=== PATIENT | male | born 1960 | race Caucasian/White ===

== ENCOUNTER → 2017-07-07 09:42 | Outpatient (CLI) | payer BC, SELFPAY ==
[2017-07-07 11:59] LABS: Absolute Neutrophil Count 2.6 X10^3/uL (2.0-7.7); Basophil# 0.07 X10^3/uL; Basophil% 1.5 % (0-1); Eosinophil# 0.24 X10^3/uL; Eosinophils% 5.3 % (0-5); Hematocrit 44.9 % (40-54); Hemoglobin 15.5 g/dl (13.0-16.5); Lymphocyte % 26.5 % (19-41); Mean Corp Hgb Conc 34.5 g/gl (32-36); Mean Corpuscular Hgb 29.6 pg (27.0-32.0); Mean Corpuscular Volume 85.7 fL (80-94); Mean Platelet Vol. 11.3 fl (6.2-12.0); Monocyte# 0.46 X10^3/uL; Monocyte% 10.2 % (0-10); Neutrophil # 2.55 X10^3/uL (2.7-7.7); Neutrophil % 56.3 % (47-70); Platelet Count 170 K/mm3 (150-450); RBC Distribution Width CV 12.9 % (11.6-14.6); RBC Distribution Width SD 40.1 fl (35.1-43.9); Red Blood Count 5.24 M/mm3 (4.6-6.2); White Blood Count 4.5 K/mm3 (4.4-11.0)
[2017-07-07 12:06] LABS: POSITIVE COUNT NO; POSITIVE DIFFERENTIAL NO; POSITIVE MORPHOLOGY NO
[2017-07-07 12:11] LABS: Cholesterol 258 mg/dL (200); High Density Lipoprotein 49 mg/dL
== END ==
PROVIDERS: Family Provider Family Medicine; PCP Family Medicine; Visit Provider Family Medicine
DX: E78.00 Pure hypercholesterolemia, unspecified (principal)
CPT/HCPCS: 36415; 82465; 83718; 85025

== ENCOUNTER → 2017-09-07 08:23 | Outpatient (CLI) | payer BC, SELFPAY ==
--- NOTE | 2017-09-07 08:30 | US_ITS ---
STUDY: ABDOMINAL ULTRASOUND - RIGHT UPPER QUADRANT REASON FOR VISIT: Male, 57 years old. History of hepatic cyst. TECHNIQUE: Ultrasound evaluation of the right upper quadrant was performed with real-time and static roca-scale imaging. TECHNICAL QUALITY: Adequate. COMPARISON: None. FINDINGS: Liver: The liver measures 16.7 cm. There is increased echogenicity consistent with fatty infiltration. The bile ducts are within normal limits. There is hepatic color flow. The direction of portal flow is hepatopetal. There is a 0.8 cm x 1 cm x 0.8 cm cyst in the left lobe of the liver. There is also evidence of a 1.7 cm x 2.1 cm x 1.6 cm cyst in the right lobe. Gallbladder: Normal distended gallbladder. The gallbladder wall measures 2.8 mm. There is a negative sonographic Sims's sign. There is no pericholecystic fluid. There are no gallstones. Common Bile Duct (C.B.D.): The common bile duct measures 4.0 mm. Pancreas: Normal size of the head, body and tail of the pancreas. There is normal echogenicity of the pancreas. There is no demonstrated pancreatic mass or cyst. Right Kidney: Normal size of the right kidney. The right kidney measures 11.6 cm x 5 cm x 5.0 cm. Normal renal cortex. The right cortex measures 1.5 cm. There is no demonstrated renal mass or cyst. There is no right hydronephrosis. US/Liver IMPRESSION: 2 small hepatic cysts. Fatty infiltration of the liver. Electronically Signed: Hari Puga MD at 14:09 EDT Tel [phone], Service support ,
== END ==
PROVIDERS: Family Provider Family Medicine; PCP Family Medicine; Visit Provider Family Medicine
DX: K76.89 Other specified diseases of liver (principal)
CPT/HCPCS: 76705

== ENCOUNTER → 2017-10-26 07:11 | Outpatient (CLI) | payer BC, SELFPAY ==
[2017-10-26 10:51] LABS: AST(SGOT) 21 U/L (15-37); Alanine Aminotransfer ALT/SGPT 32 U/L (16-61); Albumin, Serum 4.1 g/dL (3.2-5.0); Alkaline Phosphatase 58 U/L (45-117); Bilirubin, Direct 0.11 mg/dL (0.00-0.30); Cholesterol 182 mg/dL (200); Globulin 2.8 g/dL (2.2-4.2); High Density Lipoprotein 39 mg/dL; Protein, Total 6.9 g/dL (6.4-8.2); Triglycerides 72 mg/dL; Very Low Density Lipoprotein 14 mg/dL (5-40)
== END ==
PROVIDERS: Family Provider Family Medicine; PCP Family Medicine; Visit Provider Family Medicine
DX: E78.00 Pure hypercholesterolemia, unspecified (principal)
CPT/HCPCS: 36415; 80061; 80076

== ENCOUNTER → 2018-05-03 06:39 | Outpatient (CLI) | payer BC, SELFPAY ==
[2018-04-19 09:46] VITALS: BMI 30.1
--- NOTE | 2018-05-03 06:42 | CT_ITS ---
STUDY: CT ABDOMEN AND PELVIS WITH CONTRAST REASON FOR EXAM: Male, 57 years old. Right-sided abdominal pain. Right groin pain. RADIATION DOSAGE (If Supplied By Facility): CTDIvol = ( 17.2 ) mGy, DLP = ( 1119.13 ) mGycm TECHNIQUE: Transaxial images were obtained from the dome of the diaphragm to the symphysis pubis with oral contrast. 100 ml of Isovue 300 contrast was administered. Sagittal and coronal images were reconstructed. Individualized dose optimization techniques were used for this CT. COMPARISON: None. FINDINGS: The visualized lung bases are unremarkable. The visualized portions of the heart are within normal limits. There are multiple well-circumscribed low-attenuation foci throughout the liver the largest measuring up to 1.8 cm within segment 4. Normal gallbladder and extrahepatic biliary system. Normal spleen. Normal pancreas. Normal bilateral adrenal glands. Normal right kidney. There is a too small to characterize low-attenuation focus arising from the left kidney that likely reflects underlying cyst. Normal visualized stomach. Normal small intestine. Normal colon. The appendix is visualized and appears normal. There are scattered peripheral calcifications of the abdominal aorta. Normal inferior vena cava. Normal retroperitoneum. Normal urinary bladder. Normal abdominal wall. There are right L4 and L5 pars defects. There is a grade 1 anterior spondylolisthesis of L4 on L5. CT/Abdomen/Pelvis WITH Contrast IMPRESSION: Right L4 and L5 pars defects. Grade 1 anterior spondylolisthesis of L4 on L5. Multiple low-attenuation foci throughout the liver that likely reflect underlying cysts and/or hemangiomas. Atherosclerosis. Electronically Signed: Naye Pan MD at 18:42 EST Tel , Service support ,
--- OUTSIDE RECORDS SUMMARY | 2018-06-14 19:41 | XMS RPT_ITS ---
:1960 Author Organization OHIP Support Name Relationship Address Phone SHANAE VAZQUEZ Unavailable [address] + [place] [address] WOOBR Unavailable [address] + [address] [place] [address] SHANAE VAZQUEZ Unavailable [address] + [place] [address] WOOBR Unavailable [address] + [address] [place] [address] SHANAE VAZQUEZ Unavailable [address] + [place] [address] WOOBR Unavailable [address] + [address] [place] [address] SHANAE VAZQUEZ Unavailable [address] + [place] [address] WOOBR Unavailable [address] + [address] [place] [address] SHANAE VAZQUEZ Unavailable [address] + [place] [address] WOOBR Unavailable [address] + [address] [place] [address] SHANAE VAZQUEZ Unavailable [address] + [place] [address] WOOBR Unavailable [address] + [address] [place] [address] SHANAE VAZQUEZ Unavailable [address] + [place] [address] WOOBR Unavailable [address] + [address] [place] [address] SHANAE VAZQUEZ Unavailable [address] + [place] [address] WOOBR Unavailable [address] + [address] [place] [address] LYIDA, SHANAE Unavailable [address] + [place] [address] WOOBR Unavailable [address] + [address] [place] [address] LYDIA, SHANAE Unavailable [address] + [place] [address] WOOBR Unavailable [address] + [address] [place] [address] LYDIA, SHANAE Unavailable [address] + [place] [address] WOOBR Unavailable [address] + [address] [place] [address] LYDIA, SHANAE Unavailable [address] + [place] [address] WOOBR Unavailable [address] + [address] [place] [address] Care Team Providers Name Role Phone Salvatore, Maat Primary Care Unavailable Kamron Hu Admitting Unavailable Kamron Hu Attending Unavailable Kamron Hu Admitting Unavailable Kamron Hu Attending Unavailable Chase, Mata Primary Care Unavailable KitKamron marion Consulting Unavailable Kamron Hu Admitting Unavailable Chase, Mata Primary Care Unavailable Kamron Hu Consulting Unavailable Kamron Hu Attending Unavailable Chase, Mata Attending Unavailable Chase, Mata Primary Care Unavailable Stephen Delgado Attending Unavailable Kamron Hu Referring Unavailable Salvatore, Mata Attending Unavailable Chase, Mata Primary Care Unavailable Chase, Mata Referring Unavailable Chase, Mata Attending Unavailable Chase, Mata Referring Unavailable Chase, Mata Primary Care Unavailable Pop Polanco Attending Unavailable Chase, Mata Referring Unavailable Pop Polanco Attending Unavailable Pop Polanco Referring Unavailable Chase, Mata Primary Care Unavailable Chase, Mata Attending Unavailable Chase, Mata Referring Unavailable Chase, Mata Primary Care Unavailable Pop Polanco Attending Unavailable Chase, Mata Referring Unavailable Chase, Mata Attending Unavailable Chase, Mata Primary Care Unavailable PROBLEMS PROBLEMS DATE TYPE CONDITION / CODE ATTENDING STATUS SOURCE 04/19/2018 Unknown R10.9 - Pop Polanco Active [place] [facility] abdominal [facility] / [facility] R10.9(ICD-10) Repository 04/19/2018 Unknown R10.30 - Lower Pop Polanco Active [place] abdominal pain, Community unspecified / Hospital R10.30(ICD-10) Repository 08/04/2017 Unknown R07.9 - Chest Danny, Stephen Active [place] pain, unspecified Community / R07.9(ICD-10) Hospital Repository PROCEDURES PROCEDURES No Procedure Records FoundRESULTS RESULTS SURGERY VISIT REPORT Observed: 05/10/2018 Status: F Source: [place] 7:59 AM [facility] REPOSITORY [facility] [address] [place] [address] OFFICE VISIT Date of Service: 05/09/18 MR#: [id number] Acct: [id number] Name: BONIFACIO VAZQUEZ Rep #: [id number] : 1960 Provider: Pop Polanco MD Age/Sex: 57/M Location: [facility] Status: Signed Intake Intake Visit Reasons: f/u CT scan Chief Complaint: CT results Hardness Inspector Required: No Is patient in pain?: No Allergies bromfenac [From Duract] Allergy (Verified 05/09/18 08:59) Unknown Medications fluticasone 50 mcg/actuation nasal spray,suspension 2 spray INTRANASAL DAILY 04/19/18 [History Confirmed 04/19/18] loratadine 10 mg tablet 10 mg PO DAILY 04/19/18 [History Confirmed 04/19/18] PFSH Medical History Abdominal pain (Acute) Sleep apnea (Acute) Surgical History No history of previous surgery (Acute) Family History Mother Heart disease High cholesterol Brother Cancer skin Social History Smoking Status: Never smoker alcohol intake: never substance use type: does not use HPI HPI HPI: BONIFACIO VAZQUEZ, is a 57 M who presents to the office today for follow-up from a CAT scan which was completed at [facility] on 05/03/2018. This was done secondary to the patient having some right-sided abdominal pain and right groin pain. Pertinent findings were a L4 and 5 pars defect a grade 1 anterior spondylolisthesis of L4 on 5. There were multiple low-attenuation foci in the liver that most likely reflected underlying cysts or hemangiomas. And there was atherosclerosis. When I reviewed the scan there does appear to be some slight weakness particularly in the right groin but no obvious signs of hernia. In addition I question whether or not that there is some loss of space in the joints particularly on the right hip area. Patient states that he still is occasionally having the discomfort in the right groin sometimes up higher. Exam GI Other: There is some slight weakness in the right groin there is no doubt about that. However there is no signs of any obvious hernias here. The discomfort that he is primarily experiencing is in the groin area itself and there is no signs of a femoral hernia and there is no palpable lymphadenopathy. Assessment AND Plan Problems 1. Right groin pain R10.31 2. Right lower quadrant abdominal pain R10.31 Plan At this point I do not believe the patient needs to have a hernia operation. I believe that his pain is most likely related either to specifically a groin pull or other musculoskeletal issue. In addition I cannot discount the fact that there are issues within the lower back area and I question whether or not there is some issues within the right hip area. I think that is best for him to get back to his primary care physician to see if further x-rays of both the lower back and the hip area are warranted and/or if a consultation with orthopedics might benefit him. I have also instructed him that if at any time he feels an obvious bulge or mass in the right inguinal area to come back to me at once so that I can reevaluate him for an inguinal hernia. Finally we discussed the fact that he will need another colonoscopy sometime in 2019. He has been given the open access number and I believe that he would be a good candidate for me to do open access colonoscopy on him on the 10-year anniversary of his last colonoscopy. His last colonoscopy was 02/28/2009. Coding Level of Care Code Off vis,est,level 2 Diagnoses Right groin pain R10.31 Right lower quadrant abdominal pain R10.31 05/10/18 0759 <Electronically signed by Pop Polanco MD> Date Pop Cat Signature: Date (if applicable) CC: Mata Chase MD CBC W/DIFF, AUTOMATED Collected: 05/09/2018 Status: F Source: [place] 9:36 AM [facility] REPOSITORY TYPE CODE TESTS RESULT OUT OF RANGE REFERENCE UNITS LAB L100.1000 4.4-11.0 K/mm3 Normal WBC 4.5 LAB L100.1200 4.6-6.2 M/mm3 Normal RBC 4.89 LAB L100.1300 13.0-16.5 g/dl Normal HGB 14.5 LAB L100.1400 40-54 % Normal HCT 42.9 LAB L100.1500 80-94 fL Normal MCV 87.7 LAB L100.1600 27.0-32.0 pg Normal MCH 29.7 LAB L100.1700 32-36 g/gl Normal MCHC 33.8 LAB L100.1810 11.6-14.6 % Normal RDW CV 13.1 LAB L100.1820 35.1-43.9 fl Normal RDW SD 42.1 LAB L100.1900 150-450 K/mm3 Normal PLT 166 LAB L100.2000 6.2-12.0 fl Normal MPV 10.6 LAB L100.2100 47-70 % Normal NEUT% 55.2 LAB L100.2200 19-41 % Normal LY% 30.8 LAB L100.2300 0-10 % Normal MONO% 8.0 LAB L100.2400 0-5 % Normal EO% 4.0 LAB L100.2500 0-1 % High BASO% 1.8 LAB L100.2550 0.0-0.9 % Normal IM GRAN % 0.200 Result Comment: IG% - Immature Granulocytes (promyelocytes, myelocytes and metamyelocytes) > 1% indicates that a LEFT SHIFT is Present. LAB L100.2620 2.0-7.7 X10 3/uL Normal Absolute Neut 2.5 LAB L100.2720 0.83-4.51 X10 3/ul Normal Absolute Lymph 1.38 Performed By: #### L100.0100, L500.4050, L500.4100 #### [facility] [address] [place], [address] COMPREHENSIVE METABOLIC Collected: 05/09/2018 Status: F Source: [place] [facility] 9:36 AM [facility] REPOSITORY TYPE CODE TESTS RESULT OUT OF RANGE REFERENCE UNITS LAB L501.0100 74-106 mg/dL Normal GLU 97 Result Comment: Please note revised GLUCOSE reference range effective 2017. LAB L501.1000 7-18 mg/dL Normal BUN 17 LAB L501.1100 0.70-1.30 mg/dL Normal CREAT,SERUM 0.99 Result Comment: The validity of the calculated GFR AND GFRAA in patients over 70 years has not been determined. Clinical correlation is essential. LAB L501.1110 >60 mL/min Normal EST GFR 82 Result Comment: Non- GFR Calc LAB L501.1115 >60 mL/min Normal EST GFR - AA 100 Result Comment: GFR Calc LAB L501.1300 10-20 RATIO Normal BUN/CRE 17.1 LAB L501.1500 6.4-8.2 g/dL T Normal PROT 7.4 LAB L501.1800 3.2-5.0 g/dL Normal ALB 4.0 LAB L501.1950 2.2-4.2 g/dL Normal GLOB 3.4 LAB L501.2000 0.9-2.4 RATIO Normal A/G 1.2 LAB L501.2200 8.5-10.1 mg/dL CA Normal 8.6 LAB L501.4100 15-37 U/L Normal AST 18 LAB L501.4305 45-117 U/L Normal ALK P 64 LAB L501.4405 16-61 U/L Normal ALT 33 LAB L501.4600 0.20-1.00 mg/dL T Normal BILI 0.50 LAB L501.5300 136-145 mmol/L NA Normal 144 LAB L501.5600 3.5-5.1 mmol/L K Normal 4.2 LAB L501.5900 98-107 mmol/L High CL 109 LAB L501.6100 21.0-32.0 mmol/L Normal CO2 28.0 LAB L501.6200 5-15 Normal GAP 7 Performed By: #### L100.0100, L500.4050, L500.4100 #### [facility] [address] [place], [address] LIPID PROFILE Collected: 05/09/2018 Status: F Source: [place] 9:36 AM [facility] REPOSITORY TYPE CODE TESTS RESULT OUT OF RANGE REFERENCE UNITS LAB L501.4900 200 mg/dL High CHOL 229 Result Comment: <200 mg/dL Desirable 200-240 mg/dL Borderline >240 mg/dL High Risk LAB L501.5000 mg/dL Normal TRIG 93 Result Comment: The drugs N-Acetylcysteine and Metamizole may falsely depress this assay. Serum Triglycerides Reference Interval Normal <150 mg/dL Borderline high 150 - 199 mg/dL High 200 - 499 mg/dL Very High > or = 500 mg/dL LAB L501.6400 mg/dL Normal HDL 48 Result Comment: The drugs N-Acetylcysteine and Metamizole may falsely depress this assay. Reference Range HDL <40 mg/dL Low HDL Cholesterol HDL >or= 60 mg/dL High HDL Cholesterol LAB L501.6500 0-130 mg/dL High LDL 162 LAB L501.6600 5-40 mg/dL Normal VLDL 19 Performed By: #### L100.0100, L500.4050, L500.4100 #### [facility] [address] [facility] [place], [address] ABDOMEN/PELVIS WITH Observed: 05/03/2018 Status: F Source: [place] CONTRAST 6:42 AM [facility] REPOSITORY [facility] Imaging Services [address] [address] Abdomen/Pelvis WITH Contrast MR#: [id number] Acct: [id number] Name: BONIFACIO VAZQUEZ Reece Rep #: [id number] : 1960 M 57 From: Naye Pan MD PCP: Mata Chase MD Status: REG CLI Study: Abdomen/Pelvis WITH Contrast Date of Exam: 05/03/18 Exam# [id number] Ordering Dr: Pop Polanco MD STUDY: CT ABDOMEN AND PELVIS WITH CONTRAST REASON FOR EXAM: Male, 57 years old. Right-sided abdominal pain. Right groin pain. RADIATION DOSAGE (If Supplied By Facility): CTDIvol = ( 17.2 ) mGy, DLP = ( 1119.13 ) mGycm TECHNIQUE: Transaxial images were obtained from the dome of the diaphragm to the symphysis pubis with oral contrast. 100 ml of Isovue 300 contrast was administered. Sagittal and coronal images were reconstructed. Individualized dose optimization techniques were used for this CT. COMPARISON: None. FINDINGS: The visualized lung bases are unremarkable. The visualized portions of the heart are within normal limits. There are multiple well-circumscribed low-attenuation foci throughout the liver the largest measuring up to 1.8 cm within segment 4. Normal gallbladder and extrahepatic biliary system. Normal spleen. Normal pancreas. Normal bilateral adrenal glands. Normal right kidney. There is a too small to characterize low-attenuation focus arising from the left kidney that likely reflects underlying cyst. Normal visualized stomach. Normal small intestine. Normal colon. The appendix is visualized and appears normal. There are scattered peripheral calcifications of the abdominal aorta. Normal inferior vena cava. Normal retroperitoneum. Normal urinary bladder. Normal abdominal wall. There are right L4 and L5 pars defects. There is a grade 1 anterior spondylolisthesis of L4 on L5. CT/Abdomen/Pelvis WITH Contrast IMPRESSION: Right L4 and L5 pars defects. Grade 1 anterior spondylolisthesis of L4 on L5. Multiple low-attenuation foci throughout the liver that likely reflect underlying cysts and/or hemangiomas. Atherosclerosis. Electronically Signed: Naye Pan MD at 18:42 EST Tel , Service support , CC: Pop Polanco MD; Mata Chase MD Parts Sales Manager: Signed SURGERY VISIT REPORT Observed: 04/21/2018 Status: F Source: [place] 11:12 AM [facility] [address] [place] [address] OFFICE VISIT Date of Service: 04/19/18 MR#: [id number] Acct: [id number] Name: BONIFACIO VAZQUEZ Rep #: [id number] : 1960 Provider: Pop Polanco MD Age/Sex: 57/M Location: [facility] Status: Signed Intake Vital Signs04/19/18 Height 5 ft 10 in 04/19/18 Weight: 210 lb Intake Visit Reasons: RLQ Pain Poss Hernia Chief Complaint: chest pain Hardness Inspector Required: No Is patient in pain?: No Allergies bromfenac [From Duract] Allergy (Verified 04/19/18 09:47) Unknown Medications fluticasone 50 mcg/actuation nasal spray,suspension 2 spray INTRANASAL DAILY 04/19/18 [History Confirmed 04/19/18] loratadine 10 mg tablet 10 mg PO DAILY 04/19/18 [History Confirmed 04/19/18] PFSH Medical History Abdominal pain (Acute) Sleep apnea (Acute) Surgical History No history of previous surgery (Acute) Family History Mother Heart disease High cholesterol Brother Cancer skin Social History Smoking Status: Never smoker alcohol intake: never substance use type: does not use HPI HPI HPI: BONIFACIO VAZQUEZ, is a 57 M who presents to the office today for right groin pain. Patient is having right lower quadrant and right groin pain been going on for a month hurts worse after he has been running he has not noticed any obvious bulges. He has not had any nausea or vomiting. He has has noticed some fullness in the air and some swelling. Patient will be due for a screening low risk colonoscopy this year ROS General General: No weight change, appetite, fatigue, colon cancer, breast cancer or weakness HEENT HEENT: No difficulty swallowing, eye injury, eye surgery, swollen glands or hoarseness Endo Endocrine: No thyroid disease, diabetes mellitus, thyroid cancer, Hair loss, heat intolerance or cold intolerance Skin Skin: No rash or changing moles Breast Breast: No left breast lump, right breast lump, nipple discharge, breast pain, abnormal mammogram, abnormal US or breast enlargement Musc Musculoskeletal: No back problems, arthritis, rheumatoid arthritis, gout or joint pain Cardio Cardiovascular: Yes murmur; no pacemaker, heart disease, atrial fibrillation, high blood pressure, heart attack, heart stent, palpitations, shortness of breat with exertion or chest pain Psych Psychiatric: No depression, anxiety or hearing voices Resp Respiratory: No shortness of breath, Yes sleep apnea, No cough, No COPD, No asthma, No emphysema, No wheezing Gastro Gastrointestinal: Yes abdominal pain, No nausea or vomiting, No diarrhea, No constipation, No blood in stool, No acid reflux, No hemorrhoids, Yes ulcers, No gallbladder problem, No black,tarry stools Bowen Hematologic: No blood thinners, No blood disorders, No bleeding, No anemia, No blood clots Neuro Neurologic: No system reviewed and no additional complaints, except as docu, No as per HPI, No abnormal walking, No abnormal hearing, No abnormal movements, No abnormal speech, No behavioral changes, No burning sensations, No confusion, No seizure-like activity, No unsteadiness, No dizziness, No localized weakness, No frequent falls, No headache(s), No lack of coordination, No loss of vision, No memory loss, No numbness, No other visual disturbances, No radiating pain, No restless legs, No sensory deficit, No fainting, No tingling, No tremor(s), No weakness, No other Exam Chest Breast Palpation: No nipple discharge Cardio Heart Sounds: murmur GI Other: Patient's abdomen is soft. I really cannot feel any obvious large hernias in the groin area he does have some tenderness above the groin area near where the McBurney's point is slightly inferior to that where the internal opening might be as well. He has no sign of a varicocele. There is no rebound guarding or peritoneal signs identified. Assessment AND Plan Problems 1. Right lower quadrant abdominal pain R10.31 2. Right groin pain R10.31 Plan I am going to obtain a CAT scan of the abdomen and pelvis to assess whether him dealing with some form of intra-abdominal process versus a potential hernia. I will see him back once this is completed. Orders Orders: Medications New: Coding Level of Care Code Off vis,new,level 3 Diagnoses Right lower quadrant abdominal pain R10.31 Right groin pain R10.31 04/21/18 1112 <Electronically signed by Pop Polanco MD> Date Pop Polanco MD Cosigner Signature: Date (if applicable) CC: Mata Chase MD LIVER PROFILE Collected: 10/26/2017 Status: F Source: [place] 7:15 AM [facility] REPOSITORY Order Comment: Order Date: 09/08/17 Order Info: [id number] - LIVER Order Info: [id number] - LIPID TYPE CODE TESTS RESULT OUT OF RANGE REFERENCE UNITS LAB L501.1500 6.4-8.2 g/dL Normal T PROT 6.9 LAB L501.1800 3.2-5.0 g/dL Normal ALB 4.1 LAB L501.1950 2.2-4.2 g/dL Normal GLOB 2.8 LAB L501.4100 15-37 U/L Normal AST 21 LAB L501.4305 45-117 U/L Normal ALK P 58 LAB L501.4405 16-61 U/L Normal ALT 32 LAB L501.4600 0.20-1.00 mg/dL Normal T BILI 0.40 LAB L501.4700 0.00-0.30 mg/dL Normal D BILI 0.11 Performed By: #### L500.3400, L500.4100 #### [facility] [address] [place], [address] LIPID PROFILE Collected: 10/26/2017 Status: F Source: [place] 7:15 [facility] REPOSITORY Order Comment: Order Date: 09/08/17 Order Info: [id number] - LIVER Order Info: [id number] - LIPID TYPE CODE TESTS RESULT OUT OF RANGE REFERENCE UNITS LAB L501.4900 200 mg/dL Normal CHOL 182 Result Comment: <200 mg/dL Desirable 200-240 mg/dL Borderline >240 mg/dL High Risk LAB L501.5000 mg/dL Normal TRIG 72 Result Comment: The drugs N-Acetylcysteine and Metamizole may falsely depress this assay. Serum Triglycerides Reference Interval Normal <150 mg/dL Borderline high 150 - 199 mg/dL High 200 - 499 mg/dL Very High > or = 500 mg/dL LAB L501.6400 mg/dL Low HDL 39 Result Comment: The drugs N-Acetylcysteine and Metamizole may falsely depress this assay. Reference Range HDL <40 mg/dL Low HDL Cholesterol HDL >or= 60 mg/dL High HDL Cholesterol LAB L501.6500 0-130 mg/dL Normal LDL 129 LAB L501.6600 5-40 mg/dL Normal VLDL 14 Performed By: #### L500.3400, L500.4100 #### [facility] [address] [facility] [place], [address] LIVER Observed: 09/07/2017 Status: F Source: [place] 8:30 AM [facility] REPOSITORY [facility] Imaging Services [address] [place] [address] Liver MR#: [id number] Acct: [id number] Name: BONIFACIO VAZQUEZ Rep #: [id number] : 1960 M 57 From: Hari Puga MD PCP: Mata Chase MD Status: REG CLI Study: Liver Date of Exam: 09/07/17 Exam# [id number] Ordering Dr: Mata Chase MD STUDY: ABDOMINAL ULTRASOUND - RIGHT UPPER QUADRANT REASON FOR VISIT: Male, 57 years old. History of hepatic cyst. TECHNIQUE: Ultrasound evaluation of the right upper quadrant was performed with real-time and static roca-scale imaging. TECHNICAL QUALITY: Adequate. COMPARISON: None. FINDINGS: Liver: The liver measures 16.7 cm. There is increased echogenicity consistent with fatty infiltration. The bile ducts are within normal limits. There is hepatic color flow. The direction of portal flow is hepatopetal. There is a 0.8 cm x 1 cm x 0.8 cm cyst in the left lobe of the liver. There is also evidence of a 1.7 cm x 2.1 cm x 1.6 cm cyst in the right lobe. Gallbladder: Normal distended gallbladder. The gallbladder wall measures 2.8 mm. There is a negative sonographic Sims's sign. There is no pericholecystic fluid. There are no gallstones. Common Bile Duct (C.B.D.): The common bile duct measures 4.0 mm. Pancreas: Normal size of the head, body and tail of the pancreas. There is normal echogenicity of the pancreas. There is no demonstrated pancreatic mass or cyst. Right Kidney: Normal size of the right kidney. The right kidney measures 11.6 cm x 5 cm x 5.0 cm. Normal renal cortex. The right cortex measures 1.5 cm. There is no demonstrated renal mass or cyst. There is no right hydronephrosis. US/Liver IMPRESSION: 2 small hepatic cysts. Fatty infiltration of the liver. Electronically Signed: Hari Puga MD at 14:09 EDT Tel [phone], Service support , CC: Mata Chase MD Parts Sales Manager: Signed CBC W/DIFF, AUTOMATED Collected: 07/07/2017 Status: F Source: [place] 9:44 AM [facility] REPOSITORY TYPE CODE TESTS RESULT OUT OF RANGE REFERENCE UNITS LAB L100.1000 4.4-11.0 K/mm3 Normal WBC 4.5 LAB L100.1200 4.6-6.2 M/mm3 Normal RBC 5.24 LAB L100.1300 13.0-16.5 g/dl Normal HGB 15.5 LAB L100.1400 40-54 % Normal HCT 44.9 LAB L100.1500 80-94 fL Normal MCV 85.7 LAB L100.1600 27.0-32.0 pg Normal MCH 29.6 LAB L100.1700 32-36 g/gl Normal MCHC 34.5 LAB L100.1810 11.6-14.6 % Normal RDW CV 12.9 LAB L100.1820 35.1-43.9 fl Normal RDW SD 40.1 LAB L100.1900 150-450 K/mm3 Normal PLT 170 LAB L100.2000 6.2-12.0 fl Normal MPV 11.3 LAB L100.2100 47-70 % Normal NEUT% 56.3 LAB L100.2200 19-41 % Normal LY% 26.5 LAB L100.2300 0-10 % High MONO% 10.2 LAB L100.2400 0-5 % High EO% 5.3 LAB L100.2500 0-1 % High BASO% 1.5 LAB L100.2550 0.0-0.9 % Normal IM GRAN % 0.200 Result Comment: IG% - Immature Granulocytes (promyelocytes, myelocytes and metamyelocytes) > 1% indicates that a LEFT SHIFT is Present. LAB L100.2620 2.0-7.7 X10 3/uL Normal Absolute Neut 2.6 LAB L100.2720 0.83-4.51 X10 3/ul Normal Absolute Lymph 1.20 Performed By: #### L100.0100 #### [facility] [address] [id number] CHOLESTEROL Collected: 07/07/2017 Status: F Source: [place] 9:44 AM [facility] REPOSITORY TYPE CODE TESTS RESULT OUT OF RANGE REFERENCE UNITS LAB L501.4900 200 mg/dL High CHOL 258 Result Comment: <200 mg/dL Desirable 200-240 mg/dL Borderline >240 mg/dL High Risk Performed By: #### L501.4900, L501.6400 #### [facility] [address] [facility] [address] HIGH DENSITY Collected: 07/07/2017 Status: F Source: [place] LIPOPROTEIN 9:44 AM [facility] REPOSITORY TYPE CODE TESTS RESULT OUT OF RANGE REFERENCE UNITS LAB L501.6400 mg/dL Normal HDL 49 Result Comment: The drugs N-Acetylcysteine and Metamizole may falsely depress this assay. Reference Range HDL <40 mg/dL Low HDL Cholesterol HDL >or= 60 mg/dL High HDL Cholesterol Performed By: #### L501.4900, L501.6400 #### [facility] [address] [facility] [address] 12 LEAD ELECTROCARDIOGRAM Observed: 06/30/2017 Status: F Source: [place] 11:17 AM [facility] REPOSITORY [facility] Cardiovascular Services [address] [place] [address] 12 Lead EKG 06/25/17 0528 MR#: [id number] Acct: [id number] Name: BONIFACIO VAZQUEZ Rep #: [id number] : 1960 56 From: Jovany Frances MD Attending Dr: Kamron Hu MD Status: DIS SOHAM Ordering Dr: Kamron Hu MD Date: 06/25/17 Location: U Sex: M C Admitted: 06/24/17 Test Reason : AM EKG Blood Pressure : / mmHG Vent. Rate : 056 BPM Atrial Rate : 056 BPM P-R Int : 196 ms QRS Dur : 114 ms QT Int : 440 ms P-R-T Axes : 007 062 044 degrees QTc Int : 424 ms Sinus bradycardia Confirmed by YVROSE GARCIA, JOVANY ([id number]), newspaper photo editor STANISLAV GAMBOA ([id number]) on 06/30/2017 11:17:02 AM Referred By: DR HU Confirmed By:JOVANY FRANCES MD 06/30/17 111 Date Jovany Frances MD CC: Mata Chase MD Signed 12 LEAD ELECTROCARDIOGRAM Observed: 06/28/2017 Status: F Source: DEVYN 2:56 PM [facility] REPOSITORY [facility] Cardiovascular Services [address] [place] [address] 12 Lead EKG 06/24/17 0641 MR#: [id number] Acct: [id number] Name: BONIFACIO VAZQUEZ Rep #: [id number] : 1960 56 From: Jovany Frances MD Attending Dr: Kamron Hu MD Status: DIS SOHAM Ordering Dr: Eder Verde MD Date: 06/24/17 Location: U Sex: M C Admitted: 06/24/17 Test Reason : CP Blood Pressure : / mmHG Vent. Rate : 077 BPM Atrial Rate : 077 BPM P-R Int : 194 ms QRS Dur : 112 ms QT Int : 408 ms P-R-T Axes : 047 029 041 degrees QTc Int : 461 ms Normal sinus rhythm Poor R wave progression Confirmed by JOVANY FRANCES MD ([id number]), newspaper photo editor STANISLAV GAMBOA ([id number]) on 06/28/2017 2:56:15 PM Referred By: WENDY Confirmed By:JOVANY FRANCES MD 06/28/17 1456 Date Jovany Frances MD CC: Mata Chase MD Signed STRESS REPORT Observed: 06/25/2017 Status: F Source: ELSAH 4:28 PM [facility] REPOSITORY [facility] Cardiovascular Services [address] [place] [address] MR#: [id number] Acct: [id number] Name: BONIFACIO VAZQUEZ Rep #: [id number] : 1960 56 From: Jovany Frances MD Primary Care: Mata Chase MD Status: DIS SOHAM Ordering Dr: Isaac: Tyrone Kapoor Stress Test Report Date: 06/25/2017 Procedure: Exercise tolerance test/nuclear imaging study Indications: Chest pain Consent: Per the patient Procedure: The patient exercised on a Jefferson protocol for 10 minutes completing stage III and 1 minute of stage IV achieving a peak heart rate of 153 bpm (93% predicted maximal heart rate) with a peak blood pressure 212/78 mmHg and a peak MET capacity of 11 MET's. The baseline ECG demonstrated sinus bradycardia. The peak exercise ECG demonstrated no obvious ECG changes. There was a rare PVC during exercise. The blood pressure response demonstrated resting hypertension with an exaggerated response. The functional capacity was considered good. There was no complaint of chest discomfort during exercise or recovery. The examination was discontinued secondary to dyspnea and leg discomfort. Impression: 1. Technically adequate (percent predicted maximal heart rate greater than 85%) exercise tolerance test 2. Peak exercise ECG with no obvious ECG changes 3. Rare PVC during exercise 4. Nuclear images pending Myocardial perfusion imaging study: Technique: The patient was injected with 14.5 mCi of technetium 99m Cardiolite and subsequently rest SPECT Cardiolite nuclear imaging was obtained in the horizontal long, vertical long, and short axis views. The patient exercised on a Jefferson protocol for 10 minutes completing stage III and 1 minute of stage IV achieving a peak heart rate of 153 bpm (93% predicted maximal heart rate) with a peak blood pressure 212/78 mmHg and a peak MET capacity of 11 MET's. The patient was injected with 44.8 mCi of technetium 99m Cardiolite and subsequently stress SPECT Cardiolite nuclear imaging was obtained in the horizontal long, vertical long, and short axis views. A gated Cardiolite study at peak stress was obtained. Interpretation: Rest and stress SPECT cardiac nuclear imaging status post realignment, normalization, and attenuation correction, demonstrates the appearance of relative uniform tracer uptake and myocardial perfusion appearing within normal limits. There is end systolic thickening and brightening. The gated Cardiolite study demonstrates myocardial thickening and inward wall motion. The reported LVEF is 63%. Impression: 1. Rest and stress SPECT Cardiolite nuclear imaging demonstrate relative uniform tracer uptake and myocardial perfusion appearing within normal limits. 2. The gated Cardiolite study reports an LVEF of 63%. This note was generated with Grasshoppers!ation software. Every effort was made to ensure accuracy, however, computerized straddle bug mistakes may persist. 06/25/17 1628 <Electronically signed by Jovany Frances MD> Date Jovany Frances MD CC: Mata Chase MD Date Dictated: 06/25/171610 Date Transcribed: 06/25/171610 Parts Sales Manager: PM Signed DISCHARGE SUMMARY Observed: 06/25/2017 Status: F Source: DEVYN 1:11 PM [facility] REPOSITORY [facility] Medical Records Department [address] [place] [address] Discharge Summary 06/25/17 1259 MR#: [id number] Acct: [id number] Name: BONIFACIO VAZQUEZ Rep #: [id number] : 1960 56 From: Raya SANTOS PCP: Mata Chase MD Status: ADM SOHAM Y Location: [place] [address] <Raya Murillo - Last Filed: 06/25/17 13:03> Discharge Date and Diagnosis Date of Admission: 06/24/17 Date of Discharge: 06/25/17 - Primary Discharge Diagnosis Active and Suspected Problems Acute chest pain- ACS ruled out - Secondary Discharge Diagnosis Chronic Problems Dyslipidemia (Chronic) History of peptic ulcer (Chronic) BMI 32.0-32.9,adult (Chronic) Hospital Course and Treatment Imaging Results: Diagnostic Data Chest X-Ray 06/24/17 06:40 IMPRESSION: Normal x-ray examination of the chest. Electronically Signed: Diego Orr MD, FACR at 7:11 EST , Service support , Operations: None Procedures: Stress test Summary of Care Provided: The patient is a 56 year old M admitted 06/24/2017 due to chest pain which has been ongoing intermittently for approximately a week and a half. Not associated with exertion. He has a past medical history of hyperlipidemia, history of peptic ulcer, obesity. ACS ruled out. Troponin negative 4. Patient underwent stress test which was negative for ischemia. Echocardiogram shows an estimated ejection fraction of 65%, stage I diastolic dysfunction, left atrium mildly enlarged, mild pulmonic valve insufficiency. Patient denies further chest/shoulder pain. Patient seen and examined prior to discharge. Denies palpitations, dizziness, lightheadedness. Denies shortness of breath. He is stable for discharge home. Heart rate regular in rate and rhythm, no murmurs. Lungs clear. Abdomen soft, nontender. Neuro grossly intact. Vitals stable. Patient will follow up with primary care physician in 1-2 weeks. Other chronic medical conditions as noted above are stable at this time. This patient was seen by DANIELLE Landa under the supervision of Dr. Hu. Discharge Diet: Low fat/ Low Cholesterol Discharge Activity: Return to Normal Activity Call your doctor if you observe: Fever of 101 or Higher, Shortness of breath, Dizziness, Fainting spells, Chest pain, Increased palpitations (irregular heartbeat) Home Medications: Medications to take at Discharge Pantoprazole Sodium [Protonix] 40 mg PO DAILY PRN PRN 06/24/17 Primary Care Physician: Mata Chase MD [Primary Care Provider] - Please follow up with your Primary Care Physician in: 1-2 Weeks Disposition: Home Minutes spent on discharge:: 35 Patient Condition:: Stable Meaningful Use Info Meaningful Use Diagnoses (Choose all that apply): None applicable <Kamron Hu - Last Filed: 06/25/17 13:10> Discharge Date and Diagnosis - Secondary Discharge Diagnosis Chronic Problems Dyslipidemia (Chronic) History of peptic ulcer (Chronic) BMI 32.0-32.9,adult (Chronic) Hospital Course and Treatment Summary of Care Provided: Patient is a 56-year-old male admitted with chest pain. He was placed in a monitored bed did rule out AZ with serial cardiac enzymes. Patient subsequently underwent a nuclear stress test which was negative for stress-induced ischemia. Also had an echo done which demonstrated ejection fraction of 65%. Hospital course as elicited above by Raya Murillo Total time spent on discharge process 35 minutes Code Visit OBSV E AND M: [id number] Observation care discharge 06/25/17 1304 <Electronically signed by Raya Murillo NP-C> Date Raya Murillo DIRECTOR SURFACE TRANSPORTATION-C 06/25/17 1311<Electronically signed by Kamron Hu MD> Cosigner Signature (if applicable): Date Kamron Hu MD CC: DIRECTOR SURFACE TRANSPORTATION-C Raya Murillo; Kamron Hu MD; Mata Chase MD Signed DISCHARGE INSTRUCTION Observed: 06/25/2017 Status: F Source: DEVYN 12:58 PM [facility] REPOSITORY [facility] Medical Records Department [address] [facility] [address] [place] [address] Instructions for Home/Discharge Instructions 06/25/17 1257 MR#: [id number] Acct: [id number] Name: BONIFACIO VAZQUEZ Rep #: [id number] : 1960 56 From: Raya SANTOS PCP: Mata Chase MD Status: ADM SOHAM - Discharge Diagnoses Current Active Problems: Current Active and Chronic Problems Acute chest pain (Acute) Dyslipidemia (Chronic) History of peptic ulcer (Chronic) BMI 32.0-32.9,adult (Chronic) You will use the following diet at home:: Cardiac - Low-cholesterol Discharge Activity: Return to Normal Activity Call your doctor if you observe: Fever of 101 or Higher, Shortness of breath, Dizziness, Fainting spells, Chest pain, Increased palpitations (irregular heartbeat) Allergies/Adverse Reactions: Allergies bromfenac [From Duract] Allergy (Verified 06/24/17 06:43) Unknown CRAMPING, DIARRHEA Medications to take at Discharge Pantoprazole Sodium [Protonix] 40 mg PO DAILY PRN PRN 06/24/17 Primary Care Physician: Mata Chase MD [Primary Care Provider] - Please follow up with your Primary Care Physician in: 1-2 Weeks Proposed Discharge Date: 06/25/17 06/25/17 1258 <Electronically signed by Raya Murillo NP-C> Date Raya Murillo NP-C CC: Mata Chase MD CBC W/DIFF, AUTOMATED Collected: 06/25/2017 Status: F Source: DEVYN 5:15 AM [facility] REPOSITORY TYPE CODE TESTS RESULT OUT OF RANGE REFERENCE UNITS LAB L100.1000 4.4-11.0 K/mm3 Normal WBC 4.6 LAB L100.1200 4.6-6.2 M/mm3 Normal RBC 4.99 LAB L100.1300 13.0-16.5 g/dl Normal HGB 15.0 LAB L100.1400 40-54 % Normal HCT 43.1 LAB L100.1500 80-94 fL Normal MCV 86.4 LAB L100.1600 27.0-32.0 pg Normal MCH 30.1 LAB L100.1700 32-36 g/gl Normal MCHC 34.8 LAB L100.1810 11.6-14.6 % Normal RDW CV 12.8 LAB L100.1820 35.1-43.9 fl Normal RDW SD 39.8 LAB L100.1900 150-450 K/mm3 Normal PLT 165 LAB L100.2000 6.2-12.0 fl Normal MPV 10.8 LAB L100.2100 47-70 % Normal NEUT% 47.3 LAB L100.2200 19-41 % Normal LY% 34.2 LAB L100.2300 0-10 % High MONO% 12.2 LAB L100.2400 0-5 % High EO% 5.2 LAB L100.2500 0-1 % Normal BASO% 0.9 LAB L100.2550 0.0-0.9 % Normal IM GRAN % 0.200 Result Comment: IG% - Immature Granulocytes (promyelocytes, myelocytes and metamyelocytes) > 1% indicates that a LEFT SHIFT is Present. LAB L100.2620 2.0-7.7 X10 3/uL Normal Absolute Neut 2.2 LAB L100.2720 0.83-4.51 X10 3/ul Normal Absolute Lymph 1.57 Performed By: #### L100.0100 #### [facility] [address] [place], [address] BASIC METABOLIC Collected: 06/25/2017 Status: F Source: ELSAH PROFILE (BMP) 5:15 AM [facility] REPOSITORY TYPE CODE TESTS RESULT OUT OF RANGE REFERENCE UNITS LAB L501.0100 70-110 mg/dL Normal GLU 103 LAB L501.1000 7-18 mg/dL Normal BUN 17 LAB L501.1100 0.70-1.30 mg/dL Normal 0.90 CREAT,SERUM Result Comment: The validity of the calculated GFR AND GFRAA in patients over 70 years has not been determined. Clinical correlation is essential. LAB L501.1110 >60 mL/min Normal EST GFR 93 Result Comment: Non- GFR Calc LAB L501.1115 >60 mL/min Normal EST GFR - AA 113 Result Comment: GFR Calc LAB L501.1255 ml/min Normal Estimated CRCL 94.63 LAB L501.1300 10-20 RATIO Normal BUN/CRE 19.0 LAB L501.2200 8.5-10 mg/dL Normal .1 CA 8.6 LAB L501.5300 136-14 mmol/L Normal 5 NA 140 LAB L501.5600 3.5-5. mmol/L Normal 1 K 4.1 LAB L501.5900 98-107 mmol/L Normal CL 107 LAB L501.6100 21.0-3 mmol/L Normal 2.0 CO2 25.0 LAB L501.6200 5-15 Normal GAP 8 Performed By: #### L500.2500 #### [facility] [address] [place], [address] PROTHROMBIN TIME W/INR Collected: 06/25/2017 Status: F Source: ELSAH 5:15 AM [facility] REPOSITORY TYPE CODE TESTS RESULT OUT OF RANGE REFERENCE UNITS LAB L300.4150 11.7-14.9 SECONDS Normal PROTIME 14.1 LAB L300.4200 Normal INR 1.1 Performed By: #### L300.3900, L300.4310 #### [facility] [address] [place], [address] PARTIAL THROMBOPLAST Collected: 06/25/2017 Status: F Source: ELSAH TIME 5:15 AM [facility] REPOSITORY TYPE CODE TESTS RESULT OUT OF RANGE REFERENCE UNITS LAB L300.4310 24.1-36.2 Seconds Normal PTT 26.3 Performed By: #### L300.3900, L300.4310 #### [facility] [address] [facility] [address] TROPONIN-I Collected: 06/24/2017 Status: F Source: DEVYN 9:10 PM [facility] REPOSITORY Order Comment: 'TROP' Serial specimen #1, #2, #3, or #4: 4 TYPE CODE TESTS RESULT OUT OF RANGE REFERENCE UNITS LAB L501.4010 <0.06 ng/mL Normal < 0.02 TROPONIN-I Result Comment: TROPONIN-I EXPECTED VALUES <0.05 NEGATIVE 0.06 - 0.59 AT RISK OF AZ > OR = 0.60 SUGGEST AZ Performed By: #### L501.4010 #### [facility] [address] [place], [address] TROPONIN-I Collected: 06/24/2017 Status: F Source: ELSAH 2:47 PM [facility] REPOSITORY Order Comment: 'TROP' Serial specimen #1, #2, #3, or #4: 3 TYPE CODE TESTS RESULT OUT OF RANGE REFERENCE UNITS LAB L501.4010 <0.06 ng/mL Normal < 0.02 TROPONIN-I Result Comment: TROPONIN-I EXPECTED VALUES <0.05 NEGATIVE 0.06 - 0.59 AT RISK OF AZ > OR = 0.60 SUGGEST [place] Performed By: #### L501.4010 #### [facility] [address] [place], [address] ECHOCARDIOGRAM COMPLETE Observed: 06/24/2017 Status: F Source: ELSAH 1:34 PM [facility] REPOSITORY [facility] Cardiovascular Services [address] [place] [address] Echo Complete 06/24/17 1245 MR#: [id number] Acct: [id number] Name: BONIFACIO VAZQUEZ Rep #: [id number] : 1960 56 From: Stephen Delgado MD Attending Dr: Kamron Hu MD Status: ADM SOHAM Ordering Dr: Kamrno Hu MD Date: 06/24/17 Location: [facility] Sex: M C Admitted: 06/24/17 Reason For Study: CHEST PAIN Procedure This was a 2D Doppler, Color Flow transthoracic echocardiogram. Exam performed portable in patient room. Left Ventricle Normal size and thickness. The estimated ejection fraction is 65 %. Stage I diastolic dysfunction. Right Ventricle Normal right ventricle. Atria The left atrium is mildly enlarged. Mitral Valve Trivial mitral valve insufficiency. Tricuspid Valve Trivial tricuspid valve insufficiency. Aortic Valve Normal aortic valve. Pulmonic Valve The pulmonic valve is not well visualized. Mild (1+) pulmonic valve insufficiency. Great Vessels Normal aortic root. Pericardium/Pleural No pericardial effusion. MMode/2D Measurements AND Calculations LVIDd: 5.7 cm IVSd: 1.1 cm Ao root diam: 3.3 cm LVIDs: 4.0 cm LVPWd: 1.1 cm LA dimension: 4.2 cm RVDd: 3.4 cm FS: 29.0 % LAV(MOD-bp): 87.3 ml LA A4 area: 24.6 cm2 RA A4 area: 19.0 cm2 LAV(MOD-bp) Indexed: 39.5 ml/m2 LAV(MOD-sp2): 82.0 ml LAV(MOD-sp4): 80.4 ml Doppler Measurements AND Calculations MV E max ulices: 46.4 cm/sec Lat Peak E' Ulices: 9.4 cm/sec Med Peak E' Ulices: 5.8 cm/sec MV A max ulices: 52.6 cm/sec E/E' lat: 4.9 E/E' med: 8.0 MV E/A: 0.88 Ao V2 max: 122.3 cm/sec LV V1 max: 105.0 cm/sec PA V2 max: 85.9 cm/sec Ao max P.0 mmHg LV V1 max P.4 mmHg PI end-d ulices: 89.9 cm/sec TR max ulices: 231.7 cm/sec TR max P.5 mmHg Interpretation Summary The estimated ejection fraction is 65 %. Stage I diastolic dysfunction. The left atrium is mildly enlarged. Mild (1+) pulmonic valve insufficiency. Ordering Physician: Kamron Hu Referring Physician: Mata Chase MD Performed By: Berna Banks, RICHARD, RVT 06/24/17 1333 Date Stephen Delgado MD CC: Kamron Hu MD; Mata Chase MD Date Dictated: 06/24/17 1245 Date Transcribed: 06/24/17 133 Parts Sales Manager: Signed HISTORY AND PHYSICAL Observed: 06/24/2017 Status: F Source: ELSAH EXAM 10:27 AM [facility] REPOSITORY [facility] Medical Records Department [address] [place] [address] History and Physical 06/24/17 0758 MR#: [id number] Acct: [id number] Name: BONIFACIO VAZQUEZ Rep #: [id number] : 1960 56 From: Kamron Hu MD PCP: Mata Chase MD Status: ADM SOHAM Y Location: [place] [address] Problem List (1) Acute chest pain Status: Acute (2) Dyslipidemia Status: Chronic (3) History of peptic ulcer Status: Chronic (4) BMI 32.0-32.9,adult Status: Chronic History of Present Illness Date of Admission: 06/24/17 Chief Complaint: Chest pain The patient is a 56 year old M's medical history significant for BMI of 32.8, dyslipidemia who presented with chest pain. Patient symptoms have been ongoing for the past week. Pain is described as discomfort located in the left upper chest with radiation to her left shoulder and arm. Patient did relate the pain to lifting with however he did not notice any increasing pain on ambulation or any exercise. In view of the persistent nature of his symptoms patient presented to the emergency department initial set of cardiac enzymes came back unremarkable admitted to monitored bed for subsequent evaluation. On further questioning patient denied any nausea no vomiting no shortness of breath no lightheadedness. Past Medical History Past Medical History (Chronic Problems): Chronic Problems Dyslipidemia (Chronic) History of peptic ulcer (Chronic) BMI 32.0-32.9,adult (Chronic) Allergies bromfenac [From Duract] Allergy (Verified 06/24/17 06:43) Unknown CRAMPING, DIARRHEA Home Medications: Ambulatory Orders Medication Instructions Recorded Pantoprazole Sodium [Protonix] 40 mg PO DAILY PRN PRN 06/24/17 Smoking Status: Never smoker - *Family History Maternal History Items: Heart Disease Review of Systems Constitutional: Denies: Anorexia, Chills, Fever, Night Sweats, Weight Change HEENT: Denies: Head Aches, Sinus Congestion, Sinus Drainage Cardiovascular: Reports: Chest Pain. Denies: Orthopnea, Palpitations, Paroxysmal Noc. Dyspnea Respiratory: Denies: Cough, Shortness of breath at rest, Shortness of breath upon exertion, Sputum production Gastrointestinal: Denies: Abdominal Pain, Hematemesis, Hematochezia, Nausea, Melena, Vomiting Genitourinary: Denies: Dysuria, Frequency, Hematuria, Urgency Musculoskeletal: Denies: Joint Pain, Joint Tenderness Skin: Denies: Rash Neurological: Denies: Focal weakness, Numbness, Tingling Psychiatric: Denies: Homicidal Ideations, Suicidal Ideations Hematologic/ Lymphatic: Denies: Easy Bruising, Easy Bleeding VTE Information - Inpt Only VTE Present on Admission: No VTE Mechan Device Prophylaxis: Knee High NORMA Hose VTE Pharm Prophylaxis ordered?: Yes Patient Problems: Active and Suspected Problems Acute chest pain (Acute) Objective: GENERAL: cooperative HEENT: Clear conjunctiva, NECK; supple, normal thyroid, CHEST: Clear to auscultation bilaterally, HEART: Regular S1 S2, no audible murmurs ABDOMEN: soft, non-tender, normoactive bowel sounds, RECTAL: deferred EXTREMITIES: No edema, no clubbing, no cyanosis. PARTS ROOM CLERK: Awake, no lateralizing signs. SKIN: No lesions no erythema, - Physical Exam Vital Signs Temp Pulse Resp BP Pulse Ox 97.6 F L 72 18 183/88 H 100 06/24/17 06:34 06/24/17 06:34 06/24/17 06:34 06/24/17 06:34 06/24/17 06:44 Oxygen Flow Rate 2 Oxygen Delivery Method Nasal Cannula Weight: 106.9 kg Body Mass Index (BMI) 33.7 Laboratory Tests Past 24 Hrs WBC 4.2 L RBC 5.09 Hgb 15.0 Hct 44.5 MCV 87.4 MCH 29.5 MCHC 33.7 RDW 12.9 RDW Differential 41.3 Assessment/Plan Active and Suspected Problems Acute chest pain (Acute) Patient is a 56-year-old gentleman presenting with chest discomfort 1. Acute chest pain: Patient has been admitted to a monitored bed serial cardiac enzymes ordered to rule out AZ if AZ is ruled out patient undergo a nuclear stress test in a.m. to rule out myocardial ischemia 2. Dyslipidemia patient was previously on statins did not tolerate it has since been managed with diet requested for fasting lipid profile which was ordered 3. History of peptic ulcer disease patient is currently on PPI did continue 4. Obesity with BMI of 32.8 lifestyle medication including weight loss advised 5. DVT prophylaxis SC Lovenox. Code Visit OBSV E AND M: 15292 Initial observation care L3 06/24/17 1027 <Electronically signed by Kamron Hu MD> Date Kamron Hu MD Cosigner Signature: Date (if applicable) CC: Kamron Hu MD; Mata Chase MD Signed EMERGENCY DEPARTMENT Observed: 06/24/2017 Status: F Source: ELSAH SUMMARY 7:49 AM [facility] REPOSITORY [facility] Medical Records Department [address] [place] [address] Emergency Department Summary 06/24/17 0646 MR#: [id number] Acct: [id number] Name: BONIFACIO VAZQUEZ Rep #: [id number] : 1960 56 From: Eder Verde MD PCP: Salvatore GARCIA,Mata Status: REG ER ADDENDUM by Carlos Hernandez MD on 06/24/17 at 0749 BMP and troponin were both normal. I will speak to the hospitalist about admission for chest pain of uncertain etiology. Date Carlos Hernandez MD cc: Mata Chase MD * Signed - ER Visit Summary Date of Service: 06/24/17 Chief Complaint: Left shoulder and left upper extremity tightness with anterior chest pain and intermittent variable associated symptoms for the past 1-2 weeks History of Present Illness: The patient is a 56 M who has a history of hypercholesterolemia. He is a non-smoker. Presented because of left shoulder tightness and left arm tightness associated with anterior chest pain that awoke him from sleep associated with shortness of breath. He minimizes the symptoms. Apparently he woke up several times on Wednesday. He states this started this week. corrected him and states his been gone for 2 weeks. He admits to dyspnea with exertion with minimal activity 2 weeks ago. 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 When asked if movement exacerbates his pain he replied no. On one occasion he had diaphoresis. reported pallor once. He has been taking aspirin the past week. Mother had an AZ in her 80s. He has not seen a physician since Dr. Salazar retired. Physical Examination: Vital signs are remarkable for a blood pressure 183/88. HEENT exam is unremarkable. Heart is regular without murmur, gallop or rub. S1 and S2 are normal. Lungs are clear to auscultation with good movement of air bilaterally. He does not have reproducible anterior chest, left shoulder or arm pain. Radial pulses palpable and symmetric. Abdomen is soft nontender no palpable subtle mass abdominal bruit. Lower extremity exam reveals no swelling, discoloration or leg vein distention, pain along the distribution deep venous system or palpable cords. Neuro exam is nonfocal. Test Results: EKG is normal with a rate of 77. Portable chest x-ray reveals normal cardiac silhouette, lung parenchyma and bony structures. CBC is unremarkable. At the time of the dictation the BMP and troponin are pending. Emergency Department Course and Treatment: Chest pain order set was initiated to evaluate his discomfort. This may represent reflux, coronary artery disease, deconditioning and possibly pulmonary etiology. Since he reports diaphoresis and what sounds like PND with associated pressure tightness in his shoulder arm that awakes him from sleep concerned this represents cardiac. He was given aspirin and he was informed that he would need to stay for further testing. Treatment Plan: Further workup to rule out cardiac etiology and determine cause of his chest pain Disposition: Monitored unit for continued observation and further diagnostic testing Impression: 1. Chest and left upper extremity discomfort 2. New onset dyspnea with exertion 3. History of hypercholesterolemia 4. Hypertension in a nonhypertensive patient This note was generated with [employer] dictation software. It may contain incorrect words, spelling, and punctuation that were not noted in review of the chart prior to signing ED Disposition - Plan for ED Patient: Chief Complaint: Chest Pain Referrals: Mata Chase MD [Primary Care Provider] - What to do if you have Problems For any increased pain, shortness of breath, bleeding, nausea or vomiting, chest pain, or any unexpected problems, contact your Primary Care Provider. Call [facility] ([phone]) or report to the closest Emergency Room. Call 911 if necessary. 06/24/17 0716 <Electronically signed by Eder Verde MD> Date Eder Verde MD Cosigner Signature (If Indicated): Date CC: Mata Chase MD CHEST 1 VIEW Observed: 06/24/2017 Status: F Source: ELSAH (PORTABLE) 6:41 AM [facility] REPOSITORY [facility] Imaging Services [address] [place] [address] Chest 1 View (Portable) MR#: [id number] Acct: [id number] Name: BONIFACIO VAZQUEZ Rep #: [id number] : 1960 M 56 From: Diego Orr MD PCP: Mata Chase MD Status: REG ER Study: Chest 1 View (Portable) Date of Exam: 06/24/17 Exam# [id number] Ordering Dr: Eder Verde MD STUDY: X-RAY CHEST REASON FOR EXAM: Male, 56 years old. Shoulder pain on and off for 1 week TECHNIQUE: Single AP portable view of the chest. COMPARISON: None. FINDINGS: EKG leads are in place The lungs are clear and expanded. There is no demonstrated pleural abnormality. Normal size heart. Normal mediastinum and sabrina. Normal visualized pulmonary arteries. Normal visualized aortic arch and descending thoracic aorta. Normal visualized thoracic spine. Normal visualized ribs, clavicles, and shoulders. There is no demonstrated abnormality of the visualized soft tissue structures of the upper abdomen. RAD/Chest 1 View (Portable) IMPRESSION: Normal x-ray examination of the chest. Electronically Signed: Diego Orr MD, FACR at 7:11 EST , Service support , CC: Mata Chase MD; Eder Verde MD Parts Sales Manager: Signed CBC W/DIFF, AUTOMATED Collected: 06/24/2017 Status: F Source: ELSAH 6:40 AM [facility] REPOSITORY TYPE CODE TESTS RESULT OUT OF RANGE REFERENCE UNITS LAB L100.1000 4.4-11.0 K/mm3 Low WBC 4.2 LAB L100.1200 4.6-6.2 M/mm3 Normal RBC 5.09 LAB L100.1300 13.0-16.5 g/dl Normal HGB 15.0 LAB L100.1400 40-54 % Normal HCT 44.5 LAB L100.1500 80-94 fL Normal MCV 87.4 LAB L100.1600 27.0-32.0 pg Normal MCH 29.5 LAB L100.1700 32-36 g/gl Normal MCHC 33.7 LAB L100.1810 11.6-14.6 % Normal RDW CV 12.9 LAB L100.1820 35.1-43.9 fl Normal RDW SD 41.3 LAB L100.1900 150-450 K/mm3 Normal PLT 152 LAB L100.2000 6.2-12.0 fl Normal MPV 10.3 LAB L100.2100 47-70 % Low NEUT% 44.8 LAB L100.2200 19-41 % Normal LY% 34.9 LAB L100.2300 0-10 % High MONO% 12.2 LAB L100.2400 0-5 % High EO% 6.2 LAB L100.2500 0-1 % High BASO% 1.7 LAB L100.2550 0.0-0.9 % Normal IM GRAN % 0.200 Result Comment: IG% - Immature Granulocytes (promyelocytes, myelocytes and metamyelocytes) > 1% indicates that a LEFT SHIFT is Present. LAB L100.2620 2.0-7.7 X10 3/uL Low Absolute Neut 1.9 LAB L100.2720 0.83-4.51 X10 3/ul Normal Absolute Lymph 1.46 Performed By: #### L100.0100 #### [facility] [address] [place], [address] BASIC METABOLIC Collected: 06/24/2017 Status: F Source: ELSAH PROFILE (BMP) 6:40 AM [facility] REPOSITORY Order Comment: 'TROP' Serial specimen #1, #2, #3, or #4: 1 TYPE CODE TESTS RESULT OUT OF RANGE REFERENCE UNITS LAB L501.0100 70-110 mg/dL Normal GLU 110 Result Comment: Fasting Glucose result from 110 to <126 mg/dL suggests IMPAIRED HOMEOSTASIS per A.D.A. criteria. LAB L501.1000 7-18 mg/dL High BUN 19 LAB L501.1100 0.70-1.30 mg/dL Normal CREAT,SERUM 0.87 Result Comment: The validity of the calculated GFR AND GFRAA in patients over 70 years has not been determined. Clinical correlation is essential. LAB L501.1110 >60 mL/min Normal EST GFR 96 Result Comment: Non- GFR Calc LAB L501.1115 >60 mL/min Normal EST GFR - AA 116 Result Comment: GFR Calc LAB L501.1255 ml/min Normal Estimated CRCL 97.89 LAB L501.1300 10-20 RATIO High BUN/CRE 21.8 LAB L501.2200 8.5-10 mg/dL Normal .1 CA 8.6 LAB L501.5300 136-14 mmol/L Normal 5 NA 140 LAB L501.5600 3.5-5. mmol/L Normal 1 K 4.1 LAB L501.5900 98-107 mmol/L Normal CL 107 LAB L501.6100 21.0-3 mmol/L Normal 2.0 CO2 26.0 LAB L501.6200 5-15 Normal GAP 7 Performed By: #### L500.2500, L501.4010 #### [facility] [address] [place], [address] TROPONIN-I Collected: 06/24/2017 Status: F Source: ELSAH 6:40 AM [facility] REPOSITORY Order Comment: 'TROP' Serial specimen #1, #2, #3, or #4: 1 TYPE CODE TESTS RESULT OUT OF RANGE REFERENCE UNITS LAB L501.4010 <0.06 ng/mL Normal < 0.02 TROPONIN-I Result Comment: TROPONIN-I EXPECTED VALUES <0.05 NEGATIVE 0.06 - 0.59 AT RISK OF [place] > OR = 0.60 SUGGEST [place] Performed By: #### L500.2500, L501.4010 #### [facility] [address] [place], [place], [address] D-DIMER QUANTITATIVE Collected: 06/24/2017 Status: F Source: ELSAH (DVT/PE) 6:40 AM [facility] REPOSITORY TYPE CODE TESTS RESULT OUT OF RANGE REFERENCE UNITS LAB L300.8000 0.27-0.49 FEU/ug/m Normal D-DIMER 0.29 QUANT Result Comment: NORMAL D-Dimer level (<0.50) indicates no DVT or PE. Performed By: #### L300.8000 #### [facility] [address] [place], [address] MAGNESIUM Collected: 06/24/2017 Status: F Source: ELSAH 6:40 AM [facility] REPOSITORY TYPE CODE TESTS RESULT OUT OF RANGE REFERENCE UNITS LAB L501.5200 1.6-2.6 mg/dL Normal MG 2.2 Result Comment: Please note revised Magnesium reference range effective 2017. Performed By: #### L501.5200, L501.9520 #### [facility] [address] [place], [address] THYROID STIM HORMONE Collected: 06/24/2017 Status: F Source: DEVYN (TSH) 6:40 AM [facility] REPOSITORY TYPE CODE TESTS RESULT OUT OF RANGE REFERENCE UNITS LAB L501.9520 0.358-3.74 uIU/mL Normal TSH 1.25 Performed By: #### L501.5200, L501.9520 #### [facility] [address] [place], [address] ALLERGIES ALLERGIES DATE TYPE / CODE NAME / CODE REACTION SEVERITY SOURCE 05/09/2018 Drug bromfenac/F0 Unknown Unknown [facility] Allergy/4160 [id number]([facility] [address](SNOMED OR) Repository CT) ENCOUNTERS ENCOUNTERS ADMIT/DISCHARGE ACCOUNT ADMITTING ENCOUNTER LOCATION SOURCE NUMBER CLASS 05/09/2018 [id number] Ambulatory [place] 0 [facility] ing:MFPLAB Repository 05/09/2018/ [id number] Ambulatory BMSBuilding:B [place] 8 9 [facility] Repository 05/05/2018 [id number] Ambulatory [place] 6 [facility] ing:MTLAB Repository 05/03/2018 [id number] Ambulatory [place] 0 [facility] ing:CT Repository 04/19/2018/ [id number] Ambulatory BMSBuilding:B [place] 8 1 [facility] Repository 10/26/2017 [id number] Ambulatory [place] 9 [facility] ing:MTLAB Repository 09/07/2017 [id number] Ambulatory [place] 3 [facility] ing:US Repository 07/07/2017 [id number] Ambulatory [place] 8 [facility] ing:MFPLAB Repository 06/24/2017/ [id number] Kamron Hu Ambulatory [place] 8 1 [facility] ing:PCURoom: Repository [id number]: 1 06/24/2017 [id number] Kamron Hu Ambulatory BMSBuilding:B [place] 0 [facility] Repository 06/24/2017 [id number] Kamron Hu Ambulatory BMSBuilding:B [place] 5 [place] Repository 06/24/2017/ [id number] Ambulatory BMSBuilding:W [place] 8 3 [facility] Repository PAYERS PAYERS ENCOUNTER GUARANTOR PAYER SUBSCRIBER SOURCE 05/09/2018 BONIFACIO Newell Primary BONIFACIO GARRISONMAN1621 Insurance:ANTHEMPolic WHITMANDOB: Community [place] y [place]: [id number] [id number] Repository [address]Qfk: (330) Date:6182-01-31DB [phone] () 418013YTNZRRA, [place] [address]SO: 05/09/2018 Secondary NOT GIVENUNK [place] Insurance:SELF PAY [facility] Number: Effective Repository Date:2018-05-09 05/09/2018 BONIFACIO Newell Primary BONIFACIO GARRISONMAN1621 Insurance:ANTHEMPolic WHITMANDOB: Community BRENDAN y Number: [id number] [id number] Repository [address]Jum: (330) Date:2752-37-52PX [phone] () [id number], [place] [address]HT: 05/09/2018 Secondary NOT GIVENUNK [place] Insurance:SELF PAY [facility] Number: Effective Repository Date:2018-05-07 05/05/2018 BONIFACIO Newell Primary BONIFACIO GARRISONMAN1621 Insurance:ANTHEMPolic WHITMANDOB: Community BRENDAN y Number: [id number] [id number] Repository [address]Lgv: (330) Date:6586-73-52OQ [phone] () 311165DBBOVMC, [place] [address]NW: 05/05/2018 Secondary NOT GIVENUNK [place] Insurance:SELF PAY [facility] Number: Effective Repository Date:2018-05-05 05/03/2018 BONIFACIO Newell Primary BONIFACIO GARRISONMAN1621 Insurance:ANTHEMPolic WHITMANDOB: Community BRENDAN y Number: [id number] [id number] Repository [address]Tfl: (330) Date:6875-95-56TV [phone] () [id number], [place] [address]GQ: 05/03/2018 Secondary NOT GIVENUNK [place] Insurance:SELF PAY [facility] Effective Repository Date:2018-04-19 04/19/2018 BONIFACIO Newell Primary BONIFACIO Shepard [id number] Insurance:ANTHEMPolic WHITMANDOB: Community BRENDAN y Number: [id number] [id number] Repository [address]Vdq: (330) Date:3532-87-04BY [phone] () 138620LNTZENC, [place] [address]YP: 04/19/2018 Secondary NOT GIVENUNK [place] Insurance:SELF PAY [facility] Number: Effective Repository Date:2018-04-19 10/26/2017 Bonifacio Newell Primary Bonifacio Shepard [id number] Insurance:ANTHEMPolic WhitmanDOB: Community Brendan y Number: [id number] [id number] Repository [address]Bke: (330) Date:6309-66-87VZ [phone] () [id number], [place] [address]CD: 10/26/2017 Secondary NOT GIVENUNK [place] Insurance:SELF PAY [facility] Number: Effective Repository Date:2017-10-26 09/07/2017 Bonifacio Newell Primary Bonifacio Shepard [id number] Insurance:ANTHEMPolic WhitmanDOB: Community [place] y Number: [id number] [id number] Repository [address]Rti: (330) Date:9611-25-62HI [phone] () 531932JZBUTYG, [place] [address]TH: 09/07/2017 Secondary NOT GIVENUNK [place] Insurance:SELF PAY [facility] Number: Effective Repository Date:2017-08-16 07/07/2017 Bonifacio Newell Primary Bonifacio Shepard [id number] Insurance:ANTHEMPolic WhitmanDOB: Community Brendan y Number: [id number] [id number] Repository [address]Iks: (330) Date:0040-33-97BU [phone] () 507651YUJXSBS, [place] [address]VO: 07/07/2017 Secondary NOT GIVENUNK [place] Insurance:SELF PAY [facility] Number: Effective Repository Date:2017-07-07 06/24/2017 Bonifacio Newell Primary Bonifacio Shepard [id number] Insurance:ANTHEMPolic WhitmanDOB: Community Brendan y Number: [id number], [place] [id number] Repository [address]Vnq: (330) Date:4935-34-78KI [phone] () [id number] [place] [address]TG: 06/24/2017 Secondary NOT GIVENUNK [place] Insurance:SELF PAY [facility] Number: Effective Repository Date:2017-06-24 06/24/2017 Bonifacio Newell Primary Bonifacio Shepard [id number] Insurance:ANTHEMPolic WhitmanDOB: Community [place] y Number: [id number], [place] [id number] Repository [address]Gaw: (330) Date:0483-26-62HF [phone] () [id number] [place] [address]JZ: 06/24/2017 Secondary NOT GIVENUNK [place] Insurance:SELF PAY [facility] Number: Effective Repository Date:2017-06-24 06/24/2017 Bonifacio Newell Primary Bonifacio Shepard [id number] Insurance:ANTHEMPolic WhitmanDOB: Community Brendan y Number: [id number], [place] [id number] Repository [address]Guw: (330) Date:9885-18-35ZO [phone] () [id number], [place] [address]IK: 06/24/2017 Secondary NOT GIVENUNK [place] Insurance:SELF PAY [facility] Number: Effective Repository Date:2017-06-24 06/24/2017 Bonifacio Newell Primary Bonifacio [id number] Insurance:ANTHEMPolic WhitmanDOB: [facility] Number: [id number] [id number] Repository [address]Tix: (330) Date:0061-88-33BI [phone] () [id number], [place] [address]QJ: 06/24/2017 Secondary NOT GIVENUNK [place] Insurance:SELF PAY [facility] Number: Effective Repository Date:2017-06-24
== END ==
PROVIDERS: Family Provider Family Medicine; PCP Family Medicine; Referring Provider Surgery; Visit Provider Surgery
DX: R10.30 Lower abdominal pain, unspecified (principal); R10.9 Unspecified abdominal pain
CPT/HCPCS: 74177; Q9967

== ENCOUNTER → 2018-05-05 07:28 | Outpatient (CLI) | payer BC, SELFPAY | PROVIDERS: Family Provider Family Medicine; PCP Family Medicine; Referring Provider Family Medicine; Visit Provider Family Medicine | DX: R69 Illness, unspecified (principal) ==

== ENCOUNTER → 2018-05-09 09:35 | Outpatient (CLI) | payer BC, SELFPAY ==
[2018-05-09 12:29] LABS: Absolute Lymphocyte Count 1.38 X10^3/ul (0.83-4.51); Absolute Neutrophil Count 2.5 X10^3/uL (2.0-7.7); Basophil# 0.08 X10^3/uL; Basophil% 1.8 % (0-1); Eosinophil# 0.18 X10^3/uL; Hematocrit 42.9 % (40-54); Hemoglobin 14.5 g/dl (13.0-16.5); Lymphocyte # 1.38 X10^3/ul (4.0); Lymphocyte % 30.8 % (19-41); Mean Corp Hgb Conc 33.8 g/gl (32-36); Mean Corpuscular Hgb 29.7 pg (27.0-32.0); Mean Corpuscular Volume 87.7 fL (80-94); Mean Platelet Vol. 10.6 fl (6.2-12.0); Monocyte# 0.36 X10^3/uL; Neutrophil # 2.47 X10^3/uL (2.7-7.7); Neutrophil % 55.2 % (47-70); Platelet Count 166 K/mm3 (150-450); RBC Distribution Width CV 13.1 % (11.6-14.6); RBC Distribution Width SD 42.1 fl (35.1-43.9); Red Blood Count 4.89 M/mm3 (4.6-6.2); White Blood Count 4.5 K/mm3 (4.4-11.0)
[2018-05-09 12:36] LABS: POSITIVE COUNT NO; POSITIVE DIFFERENTIAL NO; POSITIVE MORPHOLOGY NO
[2018-05-09 12:38] LABS: ALB/GLOB Ratio 1.2 RATIO (0.9-2.4); AST(SGOT) 18 U/L (15-37); Alanine Aminotransfer ALT/SGPT 33 U/L (16-61); Alkaline Phosphatase 64 U/L (45-117); Anion Gap 7 (5-15); BUN 17 mg/dL (7-18); BUN/Creat Ratio 17.1 RATIO (10-20); Calcium,Total 8.6 mg/dL (8.5-10.1); Chloride 109 mmol/L (98-107); Cholesterol 229 mg/dL (200); Creatinine, Serum 0.99 mg/dL (0.70-1.30); EST Glomerular Filtration Rate 82 mL/min (>60); Est Glom Filt Rate - Afr Amer 100 mL/min (>60); Globulin 3.4 g/dL (2.2-4.2); Glucose 97 mg/dL (74-106); High Density Lipoprotein 48 mg/dL; Potassium 4.2 mmol/L (3.5-5.1); Protein, Total 7.4 g/dL (6.4-8.2); Sodium Level 144 mmol/L (136-145); Triglycerides 93 mg/dL; Very Low Density Lipoprotein 19 mg/dL (5-40)
--- OUTSIDE RECORDS SUMMARY | 2018-07-02 13:51 | XMS RPT_ITS ---
:1960 Author Organization OHIP Support Name Relationship Address Phone SHANAE VAZQUEZ Unavailable [address] + [place] [address] WOOBR Unavailable [address] + [address] [place] [address] SHANAE VAZQUEZ Unavailable [address] + [place] [address] WOOBR Unavailable [address] + [address] [place] [address] SHANAE VAZQUEZ Unavailable [address] + [place] [address] WOOBR Unavailable [address] + [address] [place] [address] SHANAE VAZQUEZ Unavailable [address] + [place] [address] WOOBR Unavailable [address] + [address] [place] [address] SHANAE VAZQUEZ Unavailable [address] + [place] [address] WOOBR Unavailable [address] + [address] [place] [address] SHANAE VAZQUEZ Unavailable [address] + [place] [address] WOOBR Unavailable [address] + [address] [place] [address] SHANAE VAZQUEZ Unavailable [address] + [place] [address] WOOBR Unavailable [address] + [address] [place] [address] SHANAE VAZQUEZ Unavailable [address] + [place] [address] WOOBR Unavailable [address] + [address] [place] [address] LYDIA, SHANAE Unavailable [address] + [place] [address] WOOBR Unavailable [address] + [address] [place] [address] LYDIA, SHANAE Unavailable [address] + [place] [address] WOOBR Unavailable [address] + [address] [place] [address] LYDIA, SHANAE Unavailable [address] + [place] [address] WOOBR Unavailable [address] + [address] [place] [address] LYDIA, SHANAE Unavailable [address] + [place] [address] WOOBR Unavailable [address] + [address] [place] [address] Care Team Providers Name Role Phone Salvatore, Mata Primary Care Unavailable Kamron Hu Admitting Unavailable Kamron Hu Attending Unavailable Kamron Hu Admitting Unavailable Kamron Hu Attending Unavailable Chase, Mata Primary Care Unavailable KitKamron marion Consulting Unavailable Kamron Hu Admitting Unavailable Chase, Mata Primary Care Unavailable Kamron Hu Consulting Unavailable Kamron Hu Attending Unavailable Chase, Mata Attending Unavailable Chase, Mata Primary Care Unavailable Stephen Delgado Attending Unavailable Kamron Hu Referring Unavailable Salavtore, Mata Attending Unavailable Chase, Mata Primary Care [...] 04/19/2018 Unknown R10.9 - Pop Polanco Active [facility] abdominal pain / Hospital R10.9(ICD-10) Repository 04/19/2018 Unknown R10.30 - Lower Pop Polanco Active [place] abdominal pain, Community unspecified / Hospital R10.30(ICD-10) Repository 08/04/2017 Unknown R07.9 - Chest Danny, Stephen Active [place] pain, unspecified Community / R07.9(ICD-10) Hospital Repository PROCEDURES PROCEDURES No Procedure Records FoundRESULTS RESULTS SURGERY VISIT REPORT Observed: 05/10/2018 Status: F Source: [place] 7:59 AM [facility] REPOSITORY [facility] [address] [place] [address] OFFICE VISIT Date of Service: 05/09/18 MR#: [id number] Acct: [id number] Name: BONIFACIO VAZQUEZ Rep #: [id number] : 1960 Provider: Pop Polanco MD Age/Sex: 57/M Location: [facility] Status: Signed Intake Intake Visit Reasons: f/u CT scan Chief Complaint: CT results Cement Mixer Required: No Is patient in pain?: No [...] a CAT scan which was completed at [facility] on 05/03/2018. This was done secondary to [...] 05/09/2018 Status: F Source: [place] 9:36 AM [facility] REPOSITORY TYPE CODE TESTS RESULT OUT OF [...] Performed By: #### L100.0100, L500.4050, L500.4100 #### [facility] Laboratory [address] [place], [address] COMPREHENSIVE METABOLIC Collected: 05/09/2018 Status: F Source: [place] [facility] 9:36 AM [facility] REPOSITORY TYPE CODE TESTS RESULT OUT OF [...] Performed By: #### L100.0100, L500.4050, L500.4100 #### [facility] Laboratory [address] [place], [address] LIPID PROFILE Collected: 05/09/2018 Status: F Source: [place] 9:36 AM [facility] REPOSITORY TYPE CODE TESTS RESULT OUT OF [...] Performed By: #### L100.0100, L500.4050, L500.4100 #### [facility] Laboratory [address] [facility] [place], [address] ABDOMEN/PELVIS WITH Observed: 05/03/2018 Status: F Source: [place] CONTRAST 6:42 AM [facility] REPOSITORY [facility] Imaging Services [address] [place] [address] Abdomen/Pelvis WITH Contrast MR#: [id number] Acct: [id number] Name: BONIFACIO VAZQUEZ Reece Rep #: [id number] : 1960 M 57 From: Naye Pan MD PCP: Mata Chase MD Status: REG CLI Study: Abdomen/Pelvis WITH Contrast Date of Exam: 05/03/18 Exam# [id number] Ordering Dr: Pop Polanco MD STUDY: CT [...] CC: Pop Polanco MD; Mata Chase MD Travel Sales Consultant: Signed SURGERY VISIT REPORT Observed: 04/21/2018 Status: F Source: [place] 11:12 AM [facility] [place] [address] OFFICE VISIT Date of Service: 04/19/18 MR#: [id number] Acct: [id number] Name: BONIFACIO VAZQUEZ Rep #: [id number] : 1960 Provider: Pop Polanco MD Age/Sex: 57/M Location[place] [facility] Status: Signed Intake Vital Signs04/19/18 Height 5 ft 10 in 04/19/18 Weight: 210 lb Intake Visit Reasons: RLQ Pain Poss Hernia Chief Complaint: chest pain Cement Mixer Required: No Is patient in pain?: No [...] LIVER PROFILE Collected: 10/26/2017 Status: F Source: [place] 7:15 AM [facility] REPOSITORY Order Comment: Order Date: 09/08/17 Order Info: 0788-1 - LIVER Order Info: 32786-2 - LIPID TYPE CODE TESTS RESULT OUT [...] 0.11 Performed By: #### L500.3400, L500.4100 #### [facility] Laboratory [address] [place], [address] LIPID PROFILE Collected: 10/26/2017 Status: F Source: [place] 7:15 [facility] REPOSITORY Order Comment: Order Date: 09/08/17 Order Info: 0788-1 - LIVER Order Info: 33071-5 - LIPID TYPE CODE TESTS RESULT OUT [...] 14 Performed By: #### L500.3400, L500.4100 #### [facility] Laboratory [address] [facility] [place], [address] LIVER Observed: 09/07/2017 Status: F Source: [place] 8:30 AM [facility] REPOSITORY [facility] Imaging Services [address] [place] [address] Liver MR#: [id number] Acct: [id number] Name: BONIFACIO VAZQUEZ Rep #: [id number] : 1960 M 57 From: Hari Puga MD PCP: Mata Chase MD Status: REG CLI Study: Liver Date of Exam: 09/07/17 Exam# [id number] Ordering Dr: Mata Chase MD STUDY: ABDOMINAL [...] Hari Puga MD at 14:09 EDT Tel [phone], Service support , CC: Mata Chase MD Travel Sales Consultant: Signed CBC W/DIFF, AUTOMATED Collected: 07/07/2017 Status: F Source: [place] 9:44 AM [facility] REPOSITORY TYPE CODE TESTS RESULT OUT OF [...] Lymph 1.20 Performed By: #### L100.0100 #### [facility] Laboratory [address] [id number] CHOLESTEROL Collected: 07/07/2017 Status: F Source: [place] 9:44 AM [facility] REPOSITORY TYPE CODE TESTS RESULT OUT OF RANGE REFERENCE UNITS LAB L501.4900 200 mg/dL High CHOL 258 Result Comment: <200 mg/dL Desirable 200-240 mg/dL Borderline >240 mg/dL High Risk Performed By: #### L501.4900, L501.6400 #### [facility] Laboratory [address] [facility] [address] HIGH DENSITY Collected: 07/07/2017 Status: F Source: [place] LIPOPROTEIN 9:44 AM [facility] REPOSITORY TYPE CODE TESTS RESULT OUT OF RANGE REFERENCE UNITS LAB L501.6400 mg/dL Normal HDL 49 Result Comment: The drugs N-Acetylcysteine and Metamizole may falsely depress this assay. Reference Range HDL <40 mg/dL Low HDL Cholesterol HDL >or= 60 mg/dL High HDL Cholesterol Performed By: #### L501.4900, L501.6400 #### [facility] Laboratory [address] [facility] [address] 12 LEAD ELECTROCARDIOGRAM Observed: 06/30/2017 Status: F Source: [place] 11:17 AM [facility] REPOSITORY [facility] Cardiovascular Services [address] [place] [address] 12 Lead EKG 06/25/17 0528 MR#: [id number] Acct: [id number] Name: BONIFACIO VAZQUEZ Rep #: [id number] : 1960 56 From: Jovany Frances MD [...] bradycardia Confirmed by YVROSE GARCIA, JOVANY ([id number]), fashion editor STANISLAV GAMBOA (56) on 06/30/2017 11:17:02 AM Referred By: DR HU Confirmed By:JOVANY FRNACES MD 06/30/17 111 Date Jovany Frances MD CC: Mata Chase MD Signed 12 LEAD ELECTROCARDIOGRAM Observed: 06/28/2017 Status: F Source: [place] 2:56 PM [facility]ITAL REPOSITORY [facility] Cardiovascular Services [address] [place] [address] 12 Lead EKG 06/24/17 0641 MR#: [id number] Acct: [id number] Name: BONIFACIO VAZQUEZ Rep #: [id number] : 1960 56 From: Jovany Frances MD [...] wave progression Confirmed by JOVANY FRANCES MD ([id number]), fashion editor STANISLAV GAMBOA (56) on 06/28/2017 2:56:15 PM Referred By: WENDY Confirmed By:JOVANY FRANCES MD 06/28/17 1456 Date Jovany Frances MD CC: Mata Chase MD Signed STRESS REPORT Observed: 06/25/2017 Status: F Source: [place] 4:28 PM [facility] REPOSITORY [facility] Cardiovascular Services [address] [place] [address] MR#: [id number] Acct: [id number] Name: BONIFACIO VAZQUEZ Rep #: [id number] : 1960 56 From: Jovany Frances MD [...] of 63%. This note was generated with [employer] software. Every effort was made to ensure accuracy, however, computerized silk screen printing racker mistakes may persist. 06/25/17 1628 <Electronically signed by Jovany Frances MD> Date Jovany Frances MD CC: Mata Chase MD Date Dictated: 06/25/171610 Date Transcribed: 06/25/171610 Travel Sales Consultant: PM Signed DISCHARGE SUMMARY Observed: 06/25/2017 Status: F Source: [place] 1:11 PM [facility] REPOSITORY [facility] Medical Records Department [address] [place] [address] Discharge Summary 06/25/17 1259 MR#: [id number] Acct: [id number] Name: BONIFACIO VAZQUEZ Rep #: [id number] : 1960 56 From: Raya SANTOS PCP: Mata Chase MD Status: ADM SOHAM Y Location: [place] [address] <Raya Murillo - Last Filed: 06/25/17 13:03> [...] in a monitored bed did rule out DE with serial cardiac enzymes. Patient subsequently underwent a nuclear stress test which was negative for stress-induced ischemia. Also had an echo done which demonstrated ejection fraction of 65%. Hospital course as elicited above by Raya Murillo Total time spent on discharge process 35 minutes Code Visit OBSV E AND M: 18283 Observation care discharge 06/25/17 1304 <Electronically signed by Raya Murillo NP-C> Date Ryaa Murillo WHEEL AND PINION INSPECTOR-C 06/25/17 1311<Electronically signed by Kamron Hu MD> Cosigner Signature (if applicable): Date Kamron Hu MD CC: WHEEL AND PINION INSPECTOR-C Raya Murillo; Kamron Hu MD; Mata Chase MD Signed DISCHARGE INSTRUCTION Observed: 06/25/2017 Status: F Source: [place] 12:58 PM [facility] REPOSITORY [facility] Medical Records Department [address] [facility] [place] [address] Instructions for Home/Discharge Instructions 06/25/17 1257 MR#: [id number] Acct: [id number] Name: BONIFACIO VAZQUEZ Rep #: [id number] : 1960 56 From: Raya SANTOS PCP: [...] 06/25/2017 Status: F Source: [place] 5:15 AM [facility] REPOSITORY TYPE CODE TESTS RESULT OUT OF [...] Lymph 1.57 Performed By: #### L100.0100 #### [facility] Laboratory [address] [place], [address] BASIC METABOLIC Collected: 06/25/2017 Status: F Source: [place] PROFILE (BMP) 5:15 AM [facility] REPOSITORY TYPE CODE TESTS RESULT OUT OF [...] GAP 8 Performed By: #### L500.2500 #### [facility] Laboratory [address] [place], [address] PROTHROMBIN TIME W/INR Collected: 06/25/2017 Status: F Source: [place] 5:15 AM [facility] REPOSITORY TYPE CODE TESTS RESULT OUT OF RANGE REFERENCE UNITS LAB L300.4150 11.7-14.9 SECONDS Normal PROTIME 14.1 LAB L300.4200 Normal INR 1.1 Performed By: #### L300.3900, L300.4310 #### [facility] Laboratory [address] [place], [address] PARTIAL THROMBOPLAST Collected: 06/25/2017 Status: F Source: [place] TIME 5:15 AM [facility] REPOSITORY TYPE CODE TESTS RESULT OUT OF RANGE REFERENCE UNITS LAB L300.4310 24.1-36.2 Seconds Normal PTT 26.3 Performed By: #### L300.3900, L300.4310 #### [facility] Laboratory [address] [facility] [address] TROPONIN-I Collected: 06/24/2017 Status: F Source: [place] 9:10 PM [facility] REPOSITORY Order Comment: 'TROP' Serial specimen #1, #2, #3, or #4: 4 TYPE CODE TESTS RESULT OUT OF RANGE REFERENCE UNITS LAB L501.4010 <0.06 ng/mL Normal < 0.02 TROPONIN-I Result Comment: TROPONIN-I EXPECTED VALUES <0.05 NEGATIVE 0.06 - 0.59 AT RISK OF DE > OR = 0.60 SUGGEST DE Performed By: #### L501.4010 #### [facility] Laboratory [address] [facility] [place], [address] TROPONIN-I Collected: 06/24/2017 Status: F Source: [place] 2:47 PM [facility] REPOSITORY Order Comment: 'TROP' Serial specimen #1, #2, #3, or #4: 3 TYPE CODE TESTS RESULT OUT OF RANGE REFERENCE UNITS LAB L501.4010 <0.06 ng/mL Normal < 0.02 TROPONIN-I Result Comment: TROPONIN-I EXPECTED VALUES <0.05 NEGATIVE 0.06 - 0.59 AT RISK OF DE > OR = 0.60 SUGGEST DE Performed By: #### L501.4010 #### [facility] Laboratory [address] [place] [place], [address] ECHOCARDIOGRAM COMPLETE Observed: 06/24/2017 Status: F Source: [place] 1:34 PM [facility] REPOSITORY [facility] Cardiovascular Services [address] [place] [address] Echo Complete 06/24/17 1245 MR#: [id number] Acct: [id number] Name: BONIFACIO VAZQUEZ Rep #: [id number] : 1960 56 From: Stephen Delgado MD Attending Dr: Kamron Hu MD Status: ADM SOHAM Ordering Dr: Kamron Hu MD Date: 06/24/17 Location: [facility] Sex: M C Admitted: 06/24/17 [...] Dictated: 06/24/17 1245 Date Transcribed: 06/24/17 133 Travel Sales Consultant: Signed HISTORY AND PHYSICAL Observed: 06/24/2017 Status: F Source: [place] EXAM 10:27 AM [facility] REPOSITORY [facility] Medical Records Department [address] [place] [address] History and Physical 06/24/17 0758 MR#: [id number] Acct: [id number] Name: BONIFACIO VAZQUEZ Rep #: [id number] : 1960 56 From: Kamron Hu MD PCP: Mata Chase MD Status: ADM SOHAM Y Location: [place] [address] Problem List (1) Acute chest pain Status: [...] EXTREMITIES: No edema, no clubbing, no cyanosis. RETIREMENT OFFICER: Awake, no lateralizing signs. SKIN: No lesions [...] serial cardiac enzymes ordered to rule out DE if DE is ruled out patient undergo a nuclear [...] Lovenox. Code Visit OBSV E AND M: 82427 Initial observation care L3 06/24/17 1027 <Electronically signed by Kamron Hu MD> Date Kamron Hu MD Cosigner Signature: Date (if applicable) CC: Kamron Hu MD; Mata Chase MD Signed EMERGENCY DEPARTMENT Observed: 06/24/2017 Status: F Source: [place] SUMMARY 7:49 AM [facility] REPOSITORY [facility] Medical Records Department [address] [place] [address] Emergency Department Summary 06/24/17 0646 MR#: [id number] Acct: [id number] Name: BONIFACIO VAZQUEZ Rep #: [id number] : 1960 56 From: Eder Verde MD [...] 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 When asked if movement exacerbates his pain he replied no. On one occasion he had diaphoresis. reported pallor once. He has been taking aspirin the past week. Mother had an DE in her 80s. He has not seen [...] nonhypertensive patient This note was generated with [employer] dictation software. It may contain incorrect words, [...] problems, contact your Primary Care Provider. Call [facility] ([phone]) or report to the closest Emergency Room. Call 911 if necessary. 06/24/17 0716 <Electronically signed by Eder Verde MD> Date Eder Verde MD Cosigner Signature (If Indicated): Date CC: Mata Chase MD CHEST 1 VIEW Observed: 06/24/2017 Status: F Source: [place] (PORTABLE) 6:41 AM [facility] REPOSITORY [facility] Imaging Services [address] [place] [address] Chest 1 View (Portable) MR#: [id number] Acct: [id number] Name: BONIFACIO VAZQUEZ Rep #: [id number] : 1960 M 56 From: Diego Orr MD PCP: Mata Chase MD Status: REG ER Study: Chest 1 View (Portable) Date of Exam: 06/24/17 Exam# [id number] Ordering Dr: Eder Verde MD STUDY: X-RAY [...] CC: Mata Chase MD; Eder Verde MD Travel Sales Consultant: Signed CBC W/DIFF, AUTOMATED Collected: 06/24/2017 Status: F Source: [place] 6:40 AM [facility] REPOSITORY TYPE CODE TESTS RESULT OUT OF [...] Lymph 1.46 Performed By: #### L100.0100 #### [facility] Laboratory [address] [place], [address] BASIC METABOLIC Collected: 06/24/2017 Status: F Source: [place] PROFILE (BMP) 6:40 AM [facility] REPOSITORY Order Comment: 'TROP' Serial specimen #1, [...] 7 Performed By: #### L500.2500, L501.4010 #### [facility] Laboratory [address] [place], [address] TROPONIN-I Collected: 06/24/2017 Status: F Source: [place] 6:40 AM [facility] REPOSITORY Order Comment: 'TROP' Serial specimen #1, #2, #3, or #4: 1 TYPE CODE TESTS RESULT OUT OF RANGE REFERENCE UNITS LAB L501.4010 <0.06 ng/mL Normal < 0.02 TROPONIN-I Result Comment: TROPONIN-I EXPECTED VALUES <0.05 NEGATIVE 0.06 - 0.59 AT RISK OF DE > OR = 0.60 SUGGEST DE Performed By: #### L500.2500, L501.4010 #### [facility] Laboratory [address] [place], [place], [address] D-DIMER QUANTITATIVE Collected: 06/24/2017 Status: F Source: [place] (DVT/PE) 6:40 AM [facility] REPOSITORY TYPE CODE TESTS RESULT OUT OF RANGE REFERENCE UNITS LAB L300.8000 0.27-0.49 FEU/ug/m Normal D-DIMER 0.29 QUANT Result Comment: NORMAL D-Dimer level (<0.50) indicates no DVT or PE. Performed By: #### L300.8000 #### [facility] Laboratory [address] [place], [address] MAGNESIUM Collected: 06/24/2017 Status: F Source: [place] 6:40 AM [facility] REPOSITORY TYPE CODE TESTS RESULT OUT OF RANGE REFERENCE UNITS LAB L501.5200 1.6-2.6 mg/dL Normal MG 2.2 Result Comment: Please note revised Magnesium reference range effective 2017. Performed By: #### L501.5200, L501.9520 #### [facility] Laboratory [address] [place], [address] THYROID STIM HORMONE Collected: 06/24/2017 Status: F Source: [place] (TSH) 6:40 AM [facility] REPOSITORY TYPE CODE TESTS RESULT OUT OF RANGE REFERENCE UNITS LAB L501.9520 0.358-3.74 uIU/mL Normal TSH 1.25 Performed By: #### L501.5200, L501.9520 #### [facility] Laboratory [address], [address] ALLERGIES ALLERGIES DATE TYPE / CODE NAME / CODE REACTION SEVERITY SOURCE 05/09/2018 Drug bromfenac/F0 Unknown Unknown [facility] Allergy/4160 [id number]([facility] 31332(SNOMED OR) Repository CT) ENCOUNTERS ENCOUNTERS ADMIT/DISCHARGE ACCOUNT ADMITTING ENCOUNTER LOCATION SOURCE NUMBER CLASS 05/09/2018 [id number] Ambulatory [place] 0 [facility] ing:MFPLAB Repository 05/09/2018/ [id number] Ambulatory BMSBuilding:B [place] 8 9 [facility] Repository 05/05/2018 [id number] Ambulatory [place] 6 [facility] ing:MTLAB Repository 05/03/2018 [id number] Ambulatory [place] 0 [facility] ing:CT Repository 04/19/2018/ [id number] Ambulatory BMSBuilding:B [place] 8 1 [facility] Repository 10/26/2017 [id number] Ambulatory [place] 9 [facility] ing:MTLAB Repository 09/07/2017 [id number] Ambulatory [place] 3 [facility] ing:US Repository 07/07/2017 [id number] Ambulatory [place] 8 [facility] ing:MFPLAB Repository 06/24/2017/ [id number] Kamron Hu Ambulatory [place] 8 1 [facility] ing:PCURoom: Repository UAX180Pco: 1 06/24/2017 [id number] Kamron Hu Ambulatory BMSBuilding:B [place] 0 [facility] Repository 06/24/2017 [id number] Kamron Hu Ambulatory BMSBuilding:B [place] 5 [place].W[facility] Repository 06/24/2017/ [id number] Ambulatory BMSBuilding:W [place] 8 3 [facility] Repository PAYERS PAYERS ENCOUNTER GUARANTOR PAYER SUBSCRIBER SOURCE 05/09/2018 BONIFACIO Newell Primary BONIFACIO GARRISONMAN1621 Insurance:ANTHEMPolic WHITMANDOB: Community [place] y [place]: [id number] [id number] Repository [address]Etl: (330) Date:3038-74-04UY [phone] () [place], [place] [address]YP: 05/09/2018 Secondary NOT GIVENUNK [place] Insurance:SELF PAY [facility] Number: Effective Repository Date:2018-05-09 05/09/2018 BONIFACIO Newell Primary BONIFACIO GARRISONMAN1621 Insurance:ANTHEMPolic WHITMANDOB: Community [place] y Number: [id number] [id number] Repository [address]Gnk: (330) Date:4397-02-96XF [phone] () [place]096[place], [place] [address]YZ: 05/09/2018 Secondary NOT GIVENUNK [place] Insurance:SELF PAY [facility] Number: Effective Repository Date:2018-05-07 05/05/2018 BONIFACIO Newell Primary BONIFACIO GARRISONMAN1621 Insurance:ANTHEMPolic WHITMANDOB: Community [place] y Number: [id number] [id number] Repository [address]Emb: (330) Date:1285-53-85CR [phone] () 636850YXWLUHN, [place] [address]TY: 05/05/2018 Secondary NOT GIVENUNK [place] Insurance:SELF PAY [facility] Number: Effective Repository Date:2018-05-05 05/03/2018 BONIFACIO Newell Primary BONIFACIO GARRISONMAN1621 Insurance:ANTHEMPolic WHITMANDOB: Community [place] y Number: [id number] [id number] Repository [address]Tie: (330) Date:3374-25-97JU [phone] () 737628RJOCFDY, [place] [address]PB: 05/03/2018 Secondary NOT GIVENUNK [place] Insurance:SELF PAY [facility] Number: Effective Repository Date:2018-04-19 04/19/2018 BONIFACIO Newell Primary BONIFACIO Shepard [id number] Insurance:ANTHEMPolic WHITMANDOB: Community BR[place]AN y Number: [id number], [place] [id number] Repository [address]Ica: (330) Date:1842-22-65CE [phone] () 907889FHCYDDX, [place] [address]TV: 04/19/2018 Secondary NOT GIVENUNK [place] Insurance:SELF PAY [facility] Number: Effective Repository Date:2018-04-19 10/26/2017 Bonifacio Newell Primary Bonifacio Shepard [id number] Insurance:ANTHEMPolic WhitmanDOB: Community Brendan y Number: [id number] [id number] Repository [address]Lvb: (330) Date:4098-44-99HI [phone] () 703588SYVFGHV, [place] [address]IH: 10/26/2017 Secondary NOT GIVENUNK [place] Insurance:SELF PAY [facility] Number: Effective Repository Date:2017-10-26 09/07/2017 Bonifacio [place] Primary Bonifacio Shepard [id number] Insurance:ANTHEMPolic WhitmanDOB: Community Mazon y [place]: [id number] [id number] Repository [address]Pdm: ([phone]) Date:5707-25-55MK [phone] () [id number], [place] [address]DJ: 09/07/2017 Secondary NOT GIVENUNK Landis Insurance:SELF PAY [facility] Number: Effective Repository Date:2017-08-16 07/07/2017 Bonifacio Newell Primary Bonifacio Shepard [id number] Insurance:ANTHEMPolic WhitmanDOB: Community Brendan y Number: [id number] [place], [place] [id number] Repository [address]Pso: [phone]) Date:1260-09-30HF [phone] () [id number], [place] [address]ZL: 07/07/2017 Secondary NOT GIVENUNK Devyn Insurance:SELF PAY [facility] Number: Effective Repository Date:2017-07-07 06/24/2017 Bonifacio Newell Primary Bonifacio Shepard [id number] Insurance:ANTHEMPolic WhitmanDOB: Community Brendan y Number: [id number] [id number] Repository [address]Lrh: ([phone]) Date:8278-81-38WS [phone] () [id number] [place] [address]DL: 06/24/2017 Secondary NOT GIVENUNK Devyn Insurance:SELF PAY [facility] Number: Effective Repository Date:2017-06-24 06/24/2017 Bonifacio Newell Primary Bonifacio Shepard [id number] Insurance:ANTHEMPolic WhitmanDOB: Community Mazon y Number: [id number] City, [place] [id number] Repository [address]Qnm: [phone]) Date:7003-09-83XB [phone] () [id number] [place] [address]TR: 06/24/2017 Secondary NOT GIVENUNK Devyn Insurance:SELF PAY [facility] Number: Effective Repository Date:2017-06-24 06/24/2017 Bonifacio Newell Primary Bonifacio Shepard [id number] Insurance:ANTHEMPolic WhitmanDOB: Community Brendan y Number: [id number] [place] [id number] Repository [address]Uli: ([phone]) Date:9554-43-92HD [phone] () 196620DHFBPKL, [place] [address]PM: 06/24/2017 Secondary NOT GIVENUNK Devyn Insurance:SELF PAY [facility] Number: Effective Repository Date:2017-06-24 06/24/2017 Bonifacio Newell Primary Bonifacio [id number] Insurance:ANTHEMPolic WhitmanDOB: [facility] Number: [id number] [id number] Repository [address]Jub: ([phone]) Date:6646-21-45ZH [phone] () [id number], [place] [address]HK: 06/24/2017 Secondary NOT GIVENUNK Devyn Insurance:SELF PAY [facility] Number: Effective Repository Date:2017-06-24
== END ==
PROVIDERS: Family Provider Family Medicine; PCP Family Medicine; Visit Provider Family Medicine
DX: E78.00 Pure hypercholesterolemia, unspecified (principal); Z71.89 Other specified counseling
CPT/HCPCS: 36415; 80053; 80061; 85025

== ENCOUNTER 2019-03-15 09:14 | Day surgery (SDC) | payer BC, SELFPAY ==
[2019-03-15 09:37] VITALS: BP 126/79; PULSE 66; RESP 15; TEMP 36.5; O2SAT 99; BMI 29.7
[2019-03-15] MEDS: Lactated Ringers 1,000 ML 100 ML IV (09:51)
--- NOTE | 2019-03-15 10:26 | HP.PCM_ITS ---
History of Present Illness Date of Admission: 03/15/19 The patient is a 58 year old M who presents for screening colonoscopy. It is been 10 years since I did his colonoscopy. Past Medical/Surgical History - Planned Operation Planned Operative Procedure/s: cscope open access Date of Operative Procedure: 03/15/19 Permit Signed: No S.O.S: No Is This Patient Having a Total Joint: No - Previous Hospitalizations/Surgeries HX Hospitalizations: Yes HX of Surgeries: elbow surgery as child. 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 Hx Heart Attack: No Hx Congestive Heart Failure: No Hx Rheumatic Fever: No Hx Hypertension: No Hx Internal Defibrillator: No Hx Pacemaker: No Hx Cardiac Catheterization: No Hx Cardiac Surgery/Stents/Etc.: No Hx Stress Test: Yes - 2017 and echo 2018 HX Edema: No Hx Pain in Legs when Walking/Leg Cramps: No - Respiratory Chronic Cough: No HX of Shortness of Breath: No Hoarseness: No Hx Chronic Obstructive Pulmonary Disease (COPD): No Hx Asthma: No Hx Emphysema: No Hx Sleep Apnea: Yes CPAP: Yes BIPAP: No Hx Oxygen Use at Home: No Hx Respiratory Tract Infection/Cold (presently): No Do You Snore Loudly (louder than talking or can be heard): Yes Result (for STOP score): Positive Hx Smoking: No Smoking Status: Never smoker - Gastrointestinal Hx Gastroesophageal Reflux: No - occ heartburn Hx Gastrointestinal Disorders: No Hx Gastrointestinal Bleed: No Hx Ulcer: Yes - hx peptic ulcers Hx Hiatal Hernia: No Difficulty Chewing/Swallowing: No Recent Onset of Swallowing Problems: No Special diet followed at home: No Hx Unplanned Weight Loss of 20#: No HX Unplanned Weight Gain of 20#: No - Neurological Hx Seizures: No HX Syncope/Blackout Spells/Unconsciousness: No Hx CVA/Stroke: No Hx Transient Ischemic Attacks (TIA): No Hx Multiple Sclerosis: No Hx Parkinson's Disease: No Hx Head/Neck Injury: No Hx Headaches: No Hx Back Injury/Pain: No Recent Onset of Speech Difficulty: No Restless Legs: No Does patient have nerve stimulator: No Patient instructed to have device shut off: No Rep notified?: No - Blood Disorder Hx Leukemia: No Bleeding Tendencies: No Hx Deep Vein Thrombosis: No Hx High Cholesterol: No Blood Transmitted Disease: No Hx Hepatitis: Yes - hep a 33 yrs ago Hx Cirrhosis: No Hx Anemia: No Hx Blood Disorders: No - Genitourinary Hx Renal Disease: No Hx Dialysis: No - Musculoskeletal Hx Arthritis: No Hx Rheumatoid Arthritis: No Hx Gout: No Recent Onset of an Orthopedic Problem: No - Endocrine Hx Diabetes: No Thyroid Disease: No Hx Steroid Therapy: No - Psycho/Social Hx Substance Use: No Hx Alcohol Use: Yes - occ Hx Anxiety: No Hx Depression: No Mental Illness: No Hx Dementia: No - Miscellaneous Hx Cancer: No Recent Exposure to Contagious Disease: No Active MRSA: No Hx of C-Diff: No Any Loose Teeth: No Allergies cefadroxil [From Duricef] Adverse Reaction (Verified 03/15/19 09:37) abdominal cramping Maternal Family History: Family History (Last Reviewed 05/09/18 @ 09:21 by Pop Polanco MD) Mother Heart disease High cholesterol Brother Cancer Heart Disease - Discharge Is Pt Admitted From a Correction, or a Mcc: No Who Could Help: family After D/C, Where Do you Plan to Go: Return Home - Physical Exam General: Alert, Oriented x3 Lungs: Clear to auscultation Cardiovascular: Regular rate, Regular Rhythm, No murmurs Abdomen: Bowel Sounds Present, Soft, Non Tender, Non-Distended Vital Signs Temp Pulse Resp BP Pulse Ox 97.7 F L 66 15 126/79 H 99 03/15/19 09:37 03/15/19 09:37 03/15/19 09:37 03/15/19 09:37 03/15/19 09:37 Oxygen Delivery Method Room Air Weight: 210 lb 8.663 oz Body Mass Index (BMI) 29.7 Assessment/Plan All Active Problems (Last Reviewed 05/09/18 @ 09:21 by Pop Polanco MD) Acute chest pain (Acute) Assessment is screening colonoscopy Plan is to perform a colonoscopy. Surgery Risks - Colonoscopy Risks Include but are not Limited To: Risks include but are not limited to: Bleeding, perforation requiring further surgery, inability to complete colonoscopy requiring barium enema.
[2019-03-15 11:01] VITALS: BP 102/80; BP 126/79; PULSE 64; RESP 14; TEMP 36.4; O2SAT 98
--- NOTE | 2019-03-15 11:02 | OP.ENDO_ITS ---
03/15/2019 Mata Chase [address] [place] [address] Re : Colonoscopy procedure for Venkat Vazquez Dear Dr. Chase This procedure was performed on Friday, March 15, 2019. My impressions and recommendations are as follows: Impressions : - Non-bleeding internal hemorrhoids. - The examination was otherwise normal. - No specimens collected. Recommendations : - Discharge patient to home. - Resume previous diet. - Continue present medications. - Await pathology results. - Repeat colonoscopy in 10 years for screening purposes. My findings are described in the full procedure note, which is enclosed. If I can be of further assistance, please feel free to contact me at Doctor phone number(s): , Fax: [phone], Work: . Sincerely, MD Pop Thornton MD 03/15/2019 11:02:23 AM This report has been signed electronically.
[2019-03-15 11:05] VITALS: BP 103/61; BP 126/79; PULSE 61; RESP 18; O2SAT 96
[2019-03-15 11:10] VITALS: BP 100/62; BP 126/79; PULSE 55; RESP 16; O2SAT 94
[2019-03-15 11:16] VITALS: BP 115/71; BP 126/79; PULSE 54; RESP 16; TEMP 36.7; O2SAT 98
[2019-03-15 11:35] VITALS: BP 126/79
== END 2019-03-15 11:59 | disposition home or self-care (01) ==
LOC: EN 09:15 → AC 09:16
PROVIDERS: Family Provider Family Medicine; PCP Family Medicine; Referring Provider Family Medicine; Visit Provider Surgery
PROC: 0DJD8ZZ Inspection of Lower Intestinal Tract, Via Natural or Artificial Opening Endoscopic (ICD-10-PCS; CPT 45378; principal; 2019-03-15 10:25)
DX: Z12.11 Encounter for screening for malignant neoplasm of colon (principal); K64.8 Other hemorrhoids; K21.9 Gastro-esophageal reflux disease without esophagitis; G47.30 Sleep apnea, unspecified; R01.1 Cardiac murmur, unspecified; Z87.11 Personal history of peptic ulcer disease
CPT/HCPCS: 45378; J7120; J2405

== ENCOUNTER → 2019-05-22 08:49 | Outpatient (CLI) | payer BC, SELFPAY ==
[2019-05-22 07:37] LABS: Absolute Lymphocyte Count 1.41 X10^3/uL (0.83-4.51); Basophil# 0.06 X10^3/uL; Basophil% 1.5 % (0-1); Eosinophil# 0.19 X10^3/uL; Eosinophils% 4.7 % (0-5); Hematocrit 42.8 % (40-54); Hemoglobin 14.5 g/dL (13.0-16.5); Lymphocyte # 1.41 X10^3/ul (4.0); Lymphocyte % 35.2 % (19-41); Mean Corp Hgb Conc 33.9 g/dL (32-36); Mean Corpuscular Hgb 29.4 pg (27.0-32.0); Mean Corpuscular Volume 86.6 fL (80-94); Monocyte# 0.39 X10^3/uL; Monocyte% 9.7 % (0-10); NRBC Flagged by Analyzer 0 % (0-5); Neutrophil # 1.95 X10^3/uL (2.7-7.7); Neutrophil % 48.7 % (47-70); Platelet Count 183 K/mm3 (150-450); RBC Distribution Width CV 12.8 % (11.6-14.6); RBC Distribution Width SD 40.1 fl (35.1-43.9); Red Blood Count 4.94 M/mm3 (4.6-6.2)
[2019-05-22 08:13] LABS: ALB/GLOB Ratio 1.2 RATIO (0.9-2.4); AST(SGOT) 16 U/L (15-37); Alanine Aminotransfer ALT/SGPT 33 U/L (16-61); Albumin, Serum 3.9 g/dL (3.2-5.0); Alkaline Phosphatase 52 U/L (45-117); Anion Gap 6 (5-15); BUN 13 mg/dL (7-18); BUN/Creat Ratio 14.1 RATIO (10-20); Calcium,Total 8.4 mg/dL (8.5-10.1); Chloride 108 mmol/L (98-107); Cholesterol 259 mg/dL (200); Creatinine, Serum 0.92 mg/dL (0.70-1.30); EST Glomerular Filtration Rate 89 mL/min (>60); Est Glom Filt Rate - Afr Amer 108 mL/min (>60); Globulin 3.2 g/dL (2.2-4.2); Glucose 97 mg/dL (74-106); High Density Lipoprotein 42 mg/dL; Potassium 3.7 mmol/L (3.5-5.1); Protein, Total 7.1 g/dL (6.4-8.2); Sodium Level 141 mmol/L (136-145); Triglycerides 82 mg/dL; Very Low Density Lipoprotein 16 mg/dL (5-40)
--- NOTE | 2019-05-22 08:51 | US_ITS ---
STUDY: ABDOMINAL ULTRASOUND - RIGHT UPPER QUADRANT REASON FOR VISIT: Male, 58 years old. Cyst seen on CT TECHNIQUE: Ultrasound evaluation of the right upper quadrant was performed with real-time and static roca-scale imaging. TECHNICAL QUALITY: Adequate. COMPARISON: CT abdomen and pelvis May 03, 2018 FINDINGS: Liver: The liver measures 16 cm. There is normal echogenicity of the liver. The bile ducts are within normal limits. There is hepatic color flow. The direction of portal flow is hepatopetal. There is no demonstrated mass lesion. There is a right hepatic simple cyst measuring 1.8 x 2.2 x 2.3 cm. Gallbladder: Normal distended gallbladder. The gallbladder wall measures 3 mm. There is a negative sonographic Sims''s sign. There is no pericholecystic fluid. There are no gallstones. Common Bile Duct (C.B.D.): The common bile duct measures 4 mm. Pancreas: Normal size of the head, body and tail of the pancreas. There is normal echogenicity of the pancreas. There is no demonstrated pancreatic mass or cyst. Right Kidney: Normal size of the right kidney. The right kidney measures 11 cm. Normal renal cortex. There is a right renal 2.4 cm cyst. There is no right hydronephrosis. US/Abdomen Limited IMPRESSION: Fatty liver. No fissure hepatic lesions identified. Right hepatic simple cyst. Electronically Signed: Carlos Casanova, at 20:11 EST Tel , Service support ,
[2019-05-25 08:08] LABS: Testosterone, Free 14.51 ng/dL (5.00-21.00)
[2019-05-25 13:55] LABS: Testosterone, % Free 2.26 % (1.50-4.20); Testosterone, Total 642 ng/dL (264-916)
== END ==
PROVIDERS: Family Provider Family Medicine; PCP Family Medicine; Referring Provider Family Medicine; Visit Provider Family Medicine
DX: Z00.00 Encounter for general adult medical examination without abnormal findings (principal); K76.89 Other specified diseases of liver; N52.9 Male erectile dysfunction, unspecified
CPT/HCPCS: 36415; 76705; 80053; 80061; 84153; 84402; 84403; 85025; G0103

== ENCOUNTER → 2020-05-23 08:51 | Outpatient (CLI) | payer BC, SELFPAY ==
--- NOTE | 2020-05-23 08:55 | US_ITS ---
STUDY: ABDOMINAL ULTRASOUND - RIGHT UPPER QUADRANT REASON FOR VISIT: Male, 59 years old LIVER CYST TECHNIQUE: Ultrasound evaluation of the right upper quadrant was performed with real-time and static roca-scale imaging. TECHNICAL QUALITY: Limited. Examination limited by bowel gas. COMPARISON: Comparison is made with prior examination dated 05/22/2019. FINDINGS: Liver: The liver measures 15.3 cm. There is increased echogenicity consistent with fatty infiltration. The bile ducts are within normal limits. There is hepatic color flow. The direction of portal flow is hepatopetal. There is a 2.3 cm x 1.9 cm x 2 cm cyst in the right hepatic lobe. This is essentially unchanged. Gallbladder: Normal distended gallbladder. The gallbladder wall measures 3 mm. There is a negative sonographic Sims''s sign. There is no pericholecystic fluid. There are no gallstones. Common Bile Duct (C.B.D.): The common bile duct measures 4 mm. Pancreas: There is nonvisualization of the pancreas due to overlying bowel gas. Right Kidney: Normal size of the right kidney. The right kidney measures 10.9 cm x 5.4 cm x 5 cm. Normal renal cortex. The right cortex measures 1.3 cm. There is no demonstrated renal mass or cyst. There is no right hydronephrosis. US/Gallbladder IMPRESSION: Fat infiltration of the liver. Stable cyst in the right lobe of the liver. Electronically Signed: Hari Puga, at 11:02 EST , Service support ,
== END ==
PROVIDERS: PCP Family Medicine; Referring Provider Family Medicine; Visit Provider Family Medicine
DX: K76.89 Other specified diseases of liver (principal)
CPT/HCPCS: 76705

== ENCOUNTER → 2020-07-10 09:28 | Outpatient (CLI) | payer OTHER, SELFPAY ==
[2020-07-10 11:19] LABS: ALB/GLOB Ratio 1.3 RATIO (0.9-2.4); AST(SGOT) 23 U/L (15-37); Alanine Aminotransfer ALT/SGPT 34 U/L (16-61); Albumin, Serum 4.2 g/dL (3.2-5.0); Alkaline Phosphatase 56 U/L (45-117); Anion Gap 3 (5-15); BUN 11 mg/dL (7-18); Calcium,Total 8.9 mg/dL (8.5-10.1); Chloride 106 mmol/L (98-107); Cholesterol 127 mg/dL (200); Creatinine, Serum 0.92 mg/dL (0.70-1.30); EST Glomerular Filtration Rate 89 mL/min (>60); Est Glom Filt Rate - Afr Amer 108 mL/min (>60); Globulin 3.2 g/dL (2.2-4.2); Glucose 90 mg/dL (74-106); High Density Lipoprotein 45 mg/dL; Potassium 4.1 mmol/L (3.5-5.1); Protein, Total 7.4 g/dL (6.4-8.2); Sodium Level 138 mmol/L (136-145); Triglycerides 57 mg/dL; Very Low Density Lipoprotein 11 mg/dL (5-40)
== END ==
PROVIDERS: PCP Family Medicine; Referring Provider Family Medicine; Visit Provider Family Medicine
DX: E78.00 Pure hypercholesterolemia, unspecified (principal)
CPT/HCPCS: 36415; 80053; 80061

== ENCOUNTER 2021-09-05 07:06 | Outpatient (CLI) | payer BC, SELFPAY ==
[2021-09-05 10:23] LABS: Absolute Lymphocyte Count 1.54 X10^3/uL (0.83-4.51); Absolute Neutrophil Count 2.6 X10^3/uL (2.0-7.7); Basophil# 0.07 X10^3/uL; Basophil% 1.4 % (0-1); Eosinophil# 0.27 X10^3/uL; Eosinophils% 5.3 % (0-5); Hematocrit 41.9 % (40-54); Hemoglobin 14.4 g/dL (13.0-16.5); Lymphocyte # 1.54 X10^3/ul (0.83-4.51); Lymphocyte % 30.4 % (19-41); Mean Corp Hgb Conc 34.4 g/dL (32-36); Mean Corpuscular Hgb 29.6 pg (27.0-32.0); Mean Corpuscular Volume 86.2 fL (80-94); Monocyte# 0.54 X10^3/uL; Monocyte% 10.7 % (0-10); NRBC Flagged by Analyzer 0 % (0-5); Neutrophil # 2.64 X10^3/uL (2.7-7.7); Platelet Count 172 K/mm3 (150-450); RBC Distribution Width CV 12.4 % (11.6-14.6); RBC Distribution Width SD 39.3 fl (35.1-43.9); Red Blood Count 4.86 M/mm3 (4.6-6.2); White Blood Count 5.1 K/mm3 (4.4-11.0)
[2021-09-05 10:41] LABS: ALB/GLOB Ratio 1.2 RATIO (0.9-2.4); AST(SGOT) 25 U/L (15-37); Alanine Aminotransfer ALT/SGPT 44 U/L (16-61); Albumin, Serum 3.7 g/dL (3.2-5.0); Alkaline Phosphatase 47 U/L (45-117); Anion Gap 5 (5-15); BUN 19 mg/dL (7-18); BUN/Creat Ratio 19.7 RATIO (10-20); Calcium,Total 8.8 mg/dL (8.5-10.1); Chloride 111 mmol/L (98-107); Cholesterol 170 mg/dL (200); Creatinine, Serum 0.96 mg/dL (0.70-1.30); EST Glomerular Filtration Rate 84 mL/min (>60); Est Glom Filt Rate - Afr Amer 102 mL/min (>60); Globulin 3.2 g/dL (2.2-4.2); Glucose 113 mg/dL (74-106); High Density Lipoprotein 41 mg/dL; Potassium 4.1 mmol/L (3.5-5.1); Protein, Total 6.9 g/dL (6.4-8.2); Sodium Level 139 mmol/L (136-145); Triglycerides 108 mg/dL; Very Low Density Lipoprotein 22 mg/dL (5-40)
== END 2021-09-05 23:59 | disposition home or self-care (01) ==
PROVIDERS: PCP Family Medicine; Referring Provider Family Medicine; Visit Provider Family Medicine
DX: Z00.00 Encounter for general adult medical examination without abnormal findings (principal); G47.30 Sleep apnea, unspecified; E66.9 Obesity, unspecified; E78.00 Pure hypercholesterolemia, unspecified
CPT/HCPCS: 36415; 80053; 80061; 85025

== ENCOUNTER → 2021-10-09 | Outpatient (CLI) | payer BC, SELFPAY ==
--- NOTE | 2021-10-09 08:42 | RAD_ITS ---
INDICATION: pain/injury EXAMINATION/TECHNIQUE: X-RAY - RIGHT XR Knee Complete 4 Views or More COMPARISON: None. FINDINGS: SOFT TISSUES: No significant soft tissue swelling. Small suprapatellar joint effusion. Mild atherosclerotic calcifications noted. BONES/JOINTS: No acute fracture or subluxation. Normal alignment. Preservation of the joint space(s). No suspicious osseous lesion observed. RAD/Knee 4 or More Views IMPRESSION: Small right knee suprapatellar joint effusion. Electronically Signed: Andrés Pappas MD at 7:27 EDT ,
== END | disposition home or self-care (01) ==
LOC: MTRAD 08:41
PROVIDERS: PCP Family Medicine; Referring Provider Nurse Practitioner Family; Visit Provider Nurse Practitioner Family
DX: M25.561 Pain in right knee (principal)
CPT/HCPCS: 73564

== ENCOUNTER → 2021-10-25 | Outpatient (CLI) | payer BC, SELFPAY ==
--- NOTE | 2021-10-25 07:19 | MRI_ITS ---
HISTORY: Knee pain. TECHNIQUE: Multiplanar and multisequence MR images of the right knee were obtained without contrast. 226 images. COMPARISON: XR 10/09/2021. FINDINGS: BONE MARROW: No acute fracture or other significant bone marrow signal abnormality. JOINTS: Mild joint effusion. TENDONS: No acute tear of the quadriceps or patellar tendons. LIGAMENTS: Intact anterior posterior cruciate ligament. MENISCI: Vertically oriented tears and blunting of the posterior horn of the medial meniscus with a displaced meniscal fragment into the intercondylar notch with a bucket-handle type component. Degeneration in the body of the medial meniscus. No lateral meniscal tear. CARTILAGE: Mild chondral thinning and small fissure of the patellar cartilage. Mild chondral irregularity of the medial joint compartment. SOFT TISSUES: Mild anterior subcutaneous edema. Chronic posterior soft tissue edema also noted. MRI/Lower Ext Joint Only (Routine) IMPRESSION: Complex medial meniscal tear with a displaced meniscal fragment. Mild joint effusion of the right knee. Very mild degenerative change. Posterior soft tissue edema. Electronically Signed: Nery Vieira MD at 10:08 EDT ,
== END | disposition home or self-care (01) ==
LOC: MRI 07:14
PROVIDERS: PCP Family Medicine; Referring Provider Nurse Practitioner Family; Visit Provider Nurse Practitioner Family
DX: M25.561 Pain in right knee (principal)
CPT/HCPCS: 73721

== ENCOUNTER → 2022-09-25 | Outpatient (CLI) | payer BC, SELFPAY ==
[2022-09-25 10:10] LABS: Absolute Lymphocyte Count 1.22 X10^3/uL (0.83-4.51); Absolute Neutrophil Count 5.2 X10^3/uL (2.0-7.7); Basophil# 0.08 X10^3/uL; Basophil% 1.1 % (0-1); Eosinophil# 0.31 X10^3/uL; Eosinophils% 4.1 % (0-5); Hematocrit 42.3 % (40-54); Hemoglobin 14.4 g/dL (13.0-16.5); Lymphocyte # 1.22 X10^3/ul (0.83-4.51); Lymphocyte % 16.3 % (19-41); Mean Corpuscular Hgb 29.7 pg (27.0-32.0); Mean Corpuscular Volume 87.2 fL (80-94); Mean Platelet Vol. 10.8 fl (6.2-12.0); Monocyte# 0.71 X10^3/uL; Monocyte% 9.5 % (0-10); NRBC Flagged by Analyzer 0 % (0-5); Neutrophil # 5.15 X10^3/uL (2.7-7.7); Neutrophil % 68.7 % (47-70); Platelet Count 174 K/mm3 (150-450); RBC Distribution Width CV 12.8 % (11.6-14.6); RBC Distribution Width SD 40.4 fl (35.1-43.9); Red Blood Count 4.85 M/mm3 (4.6-6.2); White Blood Count 7.5 K/mm3 (4.4-11.0)
[2022-09-25 10:37] LABS: ALB/GLOB Ratio 1.3 RATIO (0.9-2.4); AST(SGOT) 18 U/L (15-37); Alanine Aminotransfer ALT/SGPT 40 U/L (16-61); Alkaline Phosphatase 53 U/L (45-117); Anion Gap 3 (5-15); BUN 11 mg/dL (7-18); BUN/Creat Ratio 12.2 RATIO (10-20); Calcium,Total 9.1 mg/dL (8.5-10.1); Chloride 108 mmol/L (98-107); Cholesterol 160 mg/dL (200); EST Glomerular Filtration Rate 90 mL/min (>60); Est Glom Filt Rate - Afr Amer 109 mL/min (>60); Globulin 3.1 g/dL (2.2-4.2); Glucose 116 mg/dL (74-106); High Density Lipoprotein 40 mg/dL; PSA,Total - Annual Screen 0.22 ng/mL (0.00-4.00); Protein, Total 7.1 g/dL (6.4-8.2); Sodium Level 136 mmol/L (136-145); Thyroid Stim Hormone (TSH) 1.52 uIU/mL (0.358-3.74); Triglycerides 113 mg/dL; Very Low Density Lipoprotein 23 mg/dL (5-40)
[2022-09-25 11:09] LABS: Hemoglobin A1c 5.6 % (3.8-5.6)
[2022-09-28 15:07] LABS: ANTINUCLEAR ANTIBODIES DIRECT Negative (Negative)
== END | disposition home or self-care (01) ==
LOC: MFPLAB 08:11
PROVIDERS: PCP Family Medicine; Visit Provider Family Medicine
DX: Z00.01 Encounter for general adult medical examination with abnormal findings (principal); E66.01 Morbid (severe) obesity due to excess calories; M62.838 Other muscle spasm; Z12.5 Encounter for screening for malignant neoplasm of prostate; G47.30 Sleep apnea, unspecified; Z68.35 Body mass index [BMI] 35.0-35.9, adult
CPT/HCPCS: 36415; 80053; 80061; 83036; 84153; 84443; 85025; 86038; 86225; 86235; G0103

== ENCOUNTER → 2023-10-08 | Outpatient (CLI) | payer BC, SELFPAY ==
[2023-10-08 10:02] LABS: Absolute Lymphocyte Count 1.63 X10^3/uL (0.83-4.51); Absolute Neutrophil Count 2.4 X10^3/uL (2.0-7.7); Basophil# 0.09 X10^3/uL; Basophil% 1.8 % (0-1); Hematocrit 42.1 % (40-54); Lymphocyte # 1.63 X10^3/ul (0.83-4.51); Lymphocyte % 32.6 % (19-41); Mean Corp Hgb Conc 33.3 g/dL (32-36); Mean Corpuscular Hgb 28.8 pg (27.0-32.0); Mean Corpuscular Volume 86.6 fL (80-94); Mean Platelet Vol. 10.9 fl (6.2-12.0); Monocyte# 0.58 X10^3/uL; Monocyte% 11.6 % (0-10); NRBC Flagged by Analyzer 0 % (0-5); Neutrophil # 2.39 X10^3/uL (2.7-7.7); Neutrophil % 47.8 % (47-70); Platelet Count 173 K/mm3 (150-450); RBC Distribution Width CV 12.9 % (11.6-14.6); RBC Distribution Width SD 40.7 fl (35.1-43.9); Red Blood Count 4.86 M/mm3 (4.6-6.2)
[2023-10-08 10:26] LABS: ALB/GLOB Ratio 1.1 RATIO (0.9-2.4); AST(SGOT) 21 U/L (15-37); Alanine Aminotransfer ALT/SGPT 48 U/L (16-61); Albumin, Serum 3.7 g/dL (3.2-5.0); Alkaline Phosphatase 50 U/L (45-117); Anion Gap 6 (5-15); BUN 18 mg/dL (7-18); BUN/Creat Ratio 18.7 RATIO (10-20); Calcium,Total 8.5 mg/dL (8.5-10.1); Chloride 109 mmol/L (98-107); Cholesterol 145 mg/dL (200); Creatinine, Serum 0.96 mg/dL (0.70-1.30); EST Glomerular Filtration Rate 84 mL/min (>60); Est Glom Filt Rate - Afr Amer 102 mL/min (>60); Globulin 3.3 g/dL (2.2-4.2); Glucose 112 mg/dL (74-106); High Density Lipoprotein 40 mg/dL; Potassium 4.2 mmol/L (3.5-5.1); Sodium Level 140 mmol/L (136-145); Triglycerides 76 mg/dL; Very Low Density Lipoprotein 15 mg/dL (5-40)
== END | disposition home or self-care (01) ==
LOC: MTLAB 07:43
PROVIDERS: PCP Family Medicine; Referring Provider Family Medicine; Visit Provider Family Medicine
DX: E78.00 Pure hypercholesterolemia, unspecified (principal); G47.30 Sleep apnea, unspecified
CPT/HCPCS: 36415; 80053; 80061; 85025

== ENCOUNTER → 2024-10-11 | Outpatient (CLI) | payer BC, SELFPAY ==
[2024-10-11 10:24] LABS: Absolute Lymphocyte Count 1.46 X10^3/uL (0.83-4.51); Absolute Neutrophil Count 2.4 X10^3/uL (2.0-7.7); Basophil# 0.09 X10^3/uL; Basophil% 1.9 % (0-1); Eosinophil# 0.34 X10^3/uL; Hematocrit 40.9 % (40-54); Hemoglobin 14.1 g/dL (13.0-16.5); Lymphocyte # 1.46 X10^3/ul (0.83-4.51); Lymphocyte % 30.1 % (19-41); Mean Corp Hgb Conc 34.5 g/dL (32-36); Mean Corpuscular Hgb 29.7 pg (27.0-32.0); Mean Corpuscular Volume 86.3 fL (80-94); Mean Platelet Vol. 11.1 fl (6.2-12.0); Monocyte# 0.53 X10^3/uL; Monocyte% 10.9 % (0-10); NRBC Flagged by Analyzer 0 % (0-5); Neutrophil # 2.42 X10^3/uL (2.7-7.7); Neutrophil % 49.9 % (47-70); Platelet Count 172 K/mm3 (150-450); RBC Distribution Width CV 12.9 % (11.6-14.6); RBC Distribution Width SD 40.2 fl (35.1-43.9); Red Blood Count 4.74 M/mm3 (4.6-6.2); White Blood Count 4.9 K/mm3 (4.4-11.0)
[2024-10-11 11:03] LABS: ALB/GLOB Ratio 1.6 RATIO (0.9-2.4); AST(SGOT) 24 U/L (<=37); Alanine Aminotransfer ALT/SGPT 34 U/L (<=46); Albumin, Serum 4.3 g/dL (3.4-4.8); Alkaline Phosphatase 58 U/L (40-129); Anion Gap 11 (5-15); BUN 12 mg/dL (4-19); BUN/Creat Ratio 14.1 RATIO (10-20); Chloride 106 mmol/L (98-108); Cholesterol 175 mg/dL (<=200); Creatinine, Serum 0.86 mg/dL (0.70-1.20); EST Glomerular Filtration Rate 97 (>60); Globulin 2.6 g/dL (2.2-4.2); Glucose 125 mg/dL (70-99); High Density Lipoprotein 36 mg/dL; Low Density Lipoprotein Calc. 106 mg/dL; Potassium 4.2 mmol/L (3.3-5.1); Protein, Total 6.9 g/dL (5.9-8.4); Sodium Level 139 mmol/L (133-145); Total Bilirubin 0.51 mg/dL (0.00-1.30); Triglycerides 164 mg/dL; Very Low Density Lipoprotein 33 mg/dL (5-40); cholesterol:hdl ratio screen 4.86
== END | disposition home or self-care (01) ==
LOC: MFPLAB 08:03
PROVIDERS: PCP Family Medicine; Referring Provider Family Medicine; Visit Provider Family Medicine
DX: Z12.5 Encounter for screening for malignant neoplasm of prostate (principal); E66.812 Obesity, class 2; Z68.35 Body mass index [BMI] 35.0-35.9, adult; E78.00 Pure hypercholesterolemia, unspecified
CPT/HCPCS: 36415; 80053; 80061; 84153; 85025; G0103

== ENCOUNTER → 2024-12-12 | Outpatient (CLI) | payer BC, SELFPAY ==
--- NOTE | 2024-12-12 10:28 | MRI_ITS ---
PROCEDURE: TMJ/BILAT 12/12/2024 REASON FOR EXAM: ARTHRALGIA OF BILAT TMJ JOINTS TECHNIQUE: TMJ/BILAT Closed and open mouth imaging. Multiplanar and multisequence images were obtained. FINDINGS: Right TMJ: Mandibular condyle is normal. No arthrosis is identified. Closed mouth alignment of the TMJ is normal and there is normal anterior translation of the condyle and disc with open mouth view. No erosions. No effusion. Left TMJ: Mandibular condyle is normal. No arthrosis is identified. Closed mouth alignment of the TMJ is normal and there is normal anterior translation of the condyle and disc with open mouth view. No erosions. No effusion. Additional findings: No significant incidental findings. MRI/TMJ/Bilat IMPRESSION: Normal MRI evaluation of the temporomandibular joints. Reading Location: [facility] [place]
== END | disposition home or self-care (01) ==
PROVIDERS: PCP Family Medicine
DX: M26.632 Articular disc disorder of left temporomandibular joint (principal); M26.622 Arthralgia of left temporomandibular joint
CPT/HCPCS: 70336